=== PATIENT | male | born 1955 | race African-American/Black ===

== ENCOUNTER 2016-05-05 15:01 | Emergency (ER) | payer MEDICARE ==
[~2016-05-05] VITALS: Ht 177.8 cm; Wt 136.0 kg
[~2016-05-05 15:01] MED LIST: 1-ME1LIQ PO; ASPI325T24 PO; BUME1TAB PO; CARV25TA PO; CLON.2 PO; GABA600T PO; HUMALOG SQ; IBUP800T23 PO; LANTINJ SQ; LISI-587 PO; POTA20IN3 PO; SIMV20 PO; [UNRECOGNIZED DRUG - OTHER]; [UNRECOGNIZED DRUG - SUPPLY]; insulin needles
[2016-05-05 15:03] VITALS: BP 159/74; PULSE 73; RESP 14; TEMP 98.2; O2SAT 98
--- NOTE | 2016-05-05 15:15 | PD ---
HPI Chief Complaint: Chest Pain Time Seen by Provider: 15:15 Travel History International Travel<30 days: No Contact w/Intl Traveler<30days: No Traveled to known affect area: No History of Present Illness HPI 60-year-old male came to the emergency room with history of right sided chest pain and back of the neck pain. Patient says that this pain has been going on for past 2 days. He has history of disc problem in his neck. He points to the right parasternal area for his chest pain. Patient did not take any pain medication at home. He has history of aortic dissection that was repaired 2007. Patient says the pain is severe when he is unable to move his neck and actually has been walking like a "mummy". Vital signs were stable in the ER. [facility] Past Medical History Narrative Medical List of his past medical, social and family history was reviewed from the nursing note. Cardiovascular Problems: Yes Diabetes: Yes Respiratory: Yes Social History Tobacco Use: No Allergies-Medications (Allergen,Severity, Reaction): Coded Allergies: No Known Allergies (Unverified , 05/05/16) Comments No known drug allergies. Reported Meds & Prescriptions Reported Meds & Active Scripts Active Gabapentin 600 Mg Tab 600 Mg PO HS Humalog Inj (Insulin Human Lispro) 1,000 Unit/10 Ml Vial 20 Units SQ HS Give within 1 hour after dinner. Ibuprofen 800 Mg Tab 800 Mg PO Q8H PRN Carvedilol 25 mg (Carvedilol) 25 Mg Tab 1 Tab PO BID Bumetanide 1 Mg (Bumetanide) 1 Mg Tab 1 Mg PO DAILY Potassium Chloride inj (Potassium Chloride) 20 Meq Tab 1 Tab PO DAILY 1-Methyl 2-Pyrrolidinone (1-Methyl 2-Pyrrolidone (Bulk)) 10 Mg Tab 1 Tab PO DAILY Zestoretic 20/25 (Lisinopril/Hctz 20 mg/25 mg) 20 mg/25 mg Tab 1 Tab PO DAILY Catapres 0.2 mg (Clonidine HCl) 0.2 Mg Tab 1 Tab PO DAILY Simvastatin 20 mg (Simvastatin) 20 Mg Tab 1 Tab PO HS Ecotrin (Aspirin) 325 Mg Tabec 325 Mg PO DAILY Lantus Solostar Pen (Insulin Glargine) 100 Units/Ml Pen 30 Units SQ HS Narrative Medication List of his home medications reviewed from the nursing note. Review of Systems Except as stated in HPI: all other systems reviewed are Neg Physical Exam Narrative GENERAL: Awake, alert, morbidly obese, moderate distress SKIN: Warm and dry. HEAD: Atraumatic. Normocephalic. EYES: Pupils equal and round. No scleral icterus. No injection or drainage. ENT: No nasal bleeding or discharge. Mucous membranes pink and moist. NECK: Trachea midline. No JVD. CARDIOVASCULAR: Regular rate and rhythm. No murmur appreciated. RESPIRATORY: No accessory muscle use. Clear to auscultation. Breath sounds equal bilaterally. GASTROINTESTINAL: Abdomen soft, non-tender, nondistended. Hepatic and splenic margins not palpable. MUSCULOSKELETAL: No obvious deformities. No clubbing. No cyanosis. No edema. NEUROLOGICAL: Awake and alert. No obvious cranial nerve deficits. Motor grossly within normal limits. Normal speech. PSYCHIATRIC: Appropriate mood and affect; insight and judgment normal. Data Data Last Documented VS Vital Signs Date Time Temp Pulse Resp B/P Pulse Ox O2 Delivery O2 Flow Rate FiO2 05/05/16 19:23 18 142/72 95 Room Air 05/05/16 15:03 98.2 73 Orders Electrocardiogram (05/05/16 15:36) Basic Metabolic Panel (Bmp) (05/05/16 15:36) Ckmb (Isoenzyme) Profile (05/05/16 15:36) Complete Blood Count With Diff (05/05/16 15:36) Magnesium (Mg) (05/05/16 15:36) Prothrombin Time / Inr (Pt) (05/05/16 15:36) Act Partial Throm Time (Ptt) (05/05/16 15:36) Troponin I (05/05/16 15:36) Chest, Single Ap (05/05/16 15:36) Ecg Monitoring (05/05/16 15:36) Bilateral Bp Monitoring (05/05/16 15:36) Iv Access Insert/Monitor (05/05/16 15:36) Oximetry (05/05/16 15:36) Oxygen Administration (05/05/16 15:36) Sodium Chloride 0.9% Flush (Ns Flush) (05/05/16 15:45) Ketorolac Inj (Toradol Inj) (05/05/16 15:45) Morphine Inj (Morphine Inj) (05/05/16 15:45) Ondansetron Inj (Zofran Inj) (05/05/16 15:45) CKMB (05/05/16 16:10) CKMB% (05/05/16 16:10) Labs Laboratory Tests Test 05/05/16 16:10 White Blood Count 8.8 TH/MM3 Red Blood Count 4.58 MIL/MM3 Hemoglobin 13.8 GM/DL Hematocrit 39.7 % Mean Corpuscular Volume 86.7 FL Mean Corpuscular Hemoglobin 30.2 PG Mean Corpuscular Hemoglobin 34.8 % Concent Red Cell Distribution Width 12.7 % Platelet Count 224 TH/MM3 Mean Platelet Volume 9.2 FL Neutrophils (%) (Auto) 73.3 % Lymphocytes (%) (Auto) 16.4 % Monocytes (%) (Auto) 8.8 % Eosinophils (%) (Auto) 1.1 % Basophils (%) (Auto) 0.4 % Neutrophils # (Auto) 6.5 TH/MM3 Lymphocytes # (Auto) 1.4 TH/MM3 Monocytes # (Auto) 0.8 TH/MM3 Eosinophils # (Auto) 0.1 TH/MM3 Basophils # (Auto) 0.0 TH/MM3 CBC Comment DIFF FINAL Differential Comment Prothrombin Time 10.2 SEC Prothromb Time International 0.9 RATIO Ratio Activated Partial 25.7 SEC Thromboplast Time Sodium Level 138 MEQ/L Potassium Level 3.8 MEQ/L Chloride Level 100 MEQ/L Carbon Dioxide Level 31.0 MEQ/L Anion Gap 7 MEQ/L Blood Urea Nitrogen 23 MG/DL Creatinine 1.25 MG/DL Estimat Glomerular Filtration 72 ML/MIN Rate Random Glucose 345 MG/DL Calcium Level 8.4 MG/DL Magnesium Level 2.0 MG/DL Total Creatine Kinase 123 U/L Creatine Kinase MB 1.1 NG/ML Troponin I LESS THAN 0.02 NG/ML MDM Medical Decision Making Medical Screen Exam Complete: Yes Emergency Medical Condition: Yes Medical Record Reviewed: Yes Interpretation(s) Twelve-lead EKG was reviewed by me. Normal sinus rhythm, normal axis, lateral T wave inversion and ST depression. Heart rate of 69 bpm. Differential Diagnosis ACS, non-STEMI, aortic dissection Narrative Course 4:40 PM awaiting for the blood test results to come back. I've ordered something for pain for this patient. 7:20 PM patient's blood test results showed a significant hyperglycemia. Troponin was negative and he EKG had these changes which there were no old EKGs to compare with. Patient has significant risk factor for coronary artery disease namely uncontrolled diabetes, obesity, hypertension and age. Patient told me that he had a stress test done by [facility] last month and he was told was negative. I spoke with Dr. Amor who after listening to the history recommended that the patient should be admitted to the medical floor to be ruled out. 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 He did not want to stay. He understood the risk of leaving including a major heart attack and . He was in full capacity to make decisions for himself. He decided to sign AGAINST MEDICAL ADVICE. His female partner was in the room during this entire conversation. Procedures EKG Prior to Arrival: Yes Physician Communication Physician Communication Dr. Amor Diagnosis Primary Impression: Chest pain Qualified Code: R07.9 - Chest pain, unspecified type Additional Impressions: Poorly controlled diabetes mellitus Hyperglycemia ST segment changes on electrocardiogram Disposition: AGAINST MEDICAL ADVICE Condition: Serious Myla Chauhan MD May 05, 2016 15:15
[2016-05-05] MEDS ORDERED: KETOROLAC TROMETHAMINE 30 MG/ML (IVP) VIAL IV PUSH ONE (15:45)
[2016-05-05] MEDS ORDERED: ONDANSETRON HCL 4 MG/2 ML VIAL IV PUSH ONE (15:45)
[2016-05-05] MEDS ORDERED: MORPHINE SULFATE 4 MG/ML INJ IV PUSH ONE (15:45)
[2016-05-05] MEDS ORDERED: SODIUM CHLORIDE 0.9% FLUSH 5 ML FLUSH IVF PRN (15:45)
--- NOTE | 2016-05-05 16:24 | RADRPT ---
EXAM DATE/TIME: 05/05/2016 15:35 [facility] COMPARISON: No previous studies available for comparison. INDICATIONS : Chest Pain MEDICAL HISTORY : None. SURGICAL HISTORY : Type 2 Aortic Dissection ENCOUNTER: Initial ACUITY: 1 day PAIN SCORE: 8/10 LOCATION: Bilateral chest FINDINGS: No focal consolidation or effusion. Mild cardiomegaly. Postoperative median sternotomy. Tortuous aort a. No pneumothorax. CONCLUSION: 1. Minimal basilar atelectasis. Cardiomegaly with tortuous and ectatic aorta. Eriberto Dale MD on May 05, 2016 at 16:20 Board Certified Radiologist. This report was verified electronically.
[2016-05-05 17:05] LABS: AUTOMATED NEUTROPHIL # 6.5 TH/MM3 (1.8-7.7); BASOPHIL % 0.4 % (0.0-2.0); EOSINOPHIL # 0.1 TH/MM3 (0-0.4); EOSINOPHIL % 1.1 % (0.0-4.0); HEMATOCRIT 39.7 % (39.0-51.0); HEMO FLAGS DIFF FINAL; LYMPH % 16.4 % (9.0-44.0); LYMPHOCYTE # 1.4 TH/MM3 (1.0-4.8); MEAN CELL VOLUME 86.7 FL (80.0-100.0); MEAN CORPUSCULAR HEMOGLOBIN 30.2 PG (27.0-34.0); MEAN CORPUSCULAR HGB CONC 34.8 % (32.0-36.0); MONO % 8.8 % (0.0-8.0); NEUT % 73.3 % (16.0-70.0); PLATELET COUNT 224 TH/MM3 (150-450); RED BLOOD COUNT 4.58 MIL/MM3 (4.50-5.90); RED CELL DISTRIBUTION WIDTH 12.7 % (11.6-17.2); WHITE BLOOD COUNT 8.8 TH/MM3 (4.0-11.0)
[2016-05-05 17:18] LABS: APTT (PATIENT) 25.7 SEC (24.3-30.1); INTERNATIONAL NORMALIZED RATIO 0.9 RATIO; PROTHROMBIN TIME - PATIENT 10.2 SEC (9.8-11.6)
[2016-05-05 18:06] LABS: ANION GAP 7 MEQ/L (5-15); BLOOD UREA NITROGEN 23 MG/DL (7-18); CHLORIDE 100 MEQ/L (98-107); CREATINE KINASE 123 U/L (39-308); GLOMERULAR FILTRATION RATE 72 ML/MIN (>89); POTASSIUM 3.8 MEQ/L (3.5-5.1); SODIUM (NA) 138 MEQ/L (136-145)
[2016-05-05 18:21] LABS: CKMB 1.1 NG/ML (0.5-3.6)
[2016-05-05 19:23] VITALS: BP 142/72; RESP 18; O2SAT 95
--- NOTE | 2016-05-06 14:14 | EKG ---
Date Performed: 05/05/2016 Time Performed: 15:27:46 PTAGE: 60 years EKG: Sinus rhythm Diffuse nonspecific ST-T wave change Borderline changes for LVH Since previous tracing, the ST-T kaiser nges anterolaterally are new ABNORMAL ECG PREVIOUS TRACING : 06/16/1999 17.28 DOCTOR: Diaz Portillo Interpretating Date/Time 05/06/2016 15:34:25
[2016-07-06] MEDS ORDERED: METF500T PO (12:53)
[2016-07-12] MEDS ORDERED: BYET10IN2 SQ (08:48)
== END 2016-05-05 19:43 | disposition left against medical advice (07) ==
LOC: NEPE 15:01
DX: R07.9 Chest pain, unspecified (principal); E11.65 Type 2 diabetes mellitus with hyperglycemia; R94.31 Abnormal electrocardiogram [ECG] [EKG]; M54.2 Cervicalgia; I10 Essential (primary) hypertension; E66.9 Obesity, unspecified; Z53.29 Procedure and treatment not carried out because of patient's decision for other reasons; Z79.4 Long term (current) use of insulin; Z86.79 Personal history of other diseases of the circulatory system; Z87.09 Personal history of other diseases of the respiratory system
CPT/HCPCS: 71010; 80048; 82550; 82552; 83735; 84484; 85025; 85610; 85730; 93005; 96374; 96375; 99285; J1885; J2270; J2405

== ENCOUNTER 2016-10-19 17:22 | Inpatient (IN) | payer MEDICARE ==
[~2016-10-19] VITALS: Ht 177.8 cm; Wt 140.0 kg
[~2016-10-19 17:22] MED LIST changes: +BYET10IN2 SQ; +LACTATED RINGER'S 1000 ML INJ 1,000 ML IV ONE; +NEOSTIGMINE 3 MG/3 ML SYR IV ONE; +ONDANSETRON HCL 4 MG/2 ML VIAL IV PUSH ONE; +PROPOFOL 200 MG/20 ML AMP IV ONE; -[UNRECOGNIZED DRUG - OTHER]; -[UNRECOGNIZED DRUG - SUPPLY]; +ePHEDrine/NS 25 MG/5 ML SYR IV ONE; -insulin needles
[2016-10-19 17:24] VITALS: BP 162/79; PULSE 69; RESP 17; TEMP 99.3; O2SAT 98
[2016-10-19] MEDS ORDERED: SODIUM CHLOR 0.9% 1000 ML INJ 1,000 ML IV SCH (17:57)
[2016-10-19] MEDS ORDERED: MORPHINE SULFATE 4 MG/ML INJ IV PUSH ONE ×2 (18:00→20:30)
[2016-10-19] MEDS ORDERED: ONDANSETRON HCL 4 MG/2 ML VIAL IVP ONE (18:00)
[2016-10-19 18:05] VITALS: BP 158/83; PULSE 72; RESP 20; O2SAT 95
[2016-10-19 18:07] VITALS: O2SAT 96
--- NOTE | 2016-10-19 18:18 | PD ---
HPI Chief Complaint: Abdominal Pain Time Seen by Provider: 18:16 Travel History International Travel<30 days: Yes Contact w/Intl Traveler<30days: Yes Name of Country Traveled to: [place] Traveled to known affect area: No History of Present Illness HPI 60- year old male presents to the ED complaining of abdominal pain for the past 24 hours. He describes his pain as cramping and as a 9-10/10. The pain is worse with movement, especially with laying down and standing up. He reports he has tried Pepto Bismol and mustard for the pain, but had no relief. The patient called his primary care Dr. Brunner, who advised him to come to the ED to rule out appendicitis. He reports his last bowel movement was today, but does feel as if his abdomen is more distended than usual. He denies any nausea, vomiting, diarrhea, fevers, chills, or night sweats. He reports his medical conditions include Aortic Dissection, HTN, DM, and HLD. Patient does tell me he has a history of aortic dissection for which she follows with Dr. Doran and had surgery on it in 2006. PFSH Past Medical History Hx Anticoagulant Therapy: Yes (ASA 325MG) Cardiovascular Problems: Yes (HX AORTIC DISSECTION) Diabetes: Yes (TYPE 2) Respiratory: Yes Social History Tobacco Use: No Allergies-Medications (Allergen,Severity, Reaction): Coded Allergies: Hydrocodone (Verified Allergy, Severe, Confusion, 10/19/16) Oxycodone (Verified Allergy, Severe, Confusion, 10/19/16) Metformin (Verified Adverse Reaction, Severe, aortic dissection, 10/19/16) Reported Meds & Prescriptions Reported Meds & Active Scripts Active Humalog Inj (Insulin Human Lispro) 1,000 Unit/10 Ml Vial 20 Units SQ HS Give within 1 hour after dinner. Reported Potassium Chloride ER (Potassium Chloride) 20 Meq Tab 20 Meq PO DAILY Simvastatin 20 Mg Tab 20 Mg PO DAILY Zestoretic (Lisinopril-Hctz) 20-25 Mg Tab 1 Tab PO BID Lantus Solostar Pen Inj (Insulin Glargine) 300 Unit/3 Ml Pen 30 Units SQ HS Clonidine (Clonidine HCl) 0.2 Mg Tab 0.2 Mg PO HS Coreg (Carvedilol) 25 Mg Tab 25 Mg PO BID Bumetanide 1 Mg Tab 0.5 Mg PO DAILY Ecotrin Regular Strength (Aspirin) 325 Mg Tabdr 325 Mg PO DAILY Norvasc (Amlodipine Besylate) 10 Mg Tab 10 Mg PO DAILY Review of Systems General / Constitutional: No: Fever, Chills, Weight Gain, Weight Loss, Other Eyes: No: Diploplia, Blurred Vision, Photophobia, Drainage, Redness, Foreign Body Sensation, Pain, Tearing, Blind Spots, Visual changes, Blindness, Other HENT: No: Headaches, Vertigo, Lightheadedness, Sore Throat, Rhinitis, Rhinorrhea, Congestion, Nosebleed, Neck Stiffness, Neck Pain, Masses, Gingival Bleeding, Dental Difficulties, Ear Discharge, Earache, Other Cardiovascular: No: Chest Pain or Discomfort, Palpitations, Irregular Rhythm, Tachycardia, Diaphoresis, Syncope, Dyspnea on exertion, Varicosities, Edema, Cyanosis, Varicosities, Phlebitis, Claudication, Other Respiratory: No: Cough, Shortness of Breath, Wheezing, Sneezing, Orthopnea, Hemoptysis, Stridor, Night Sweats, Pleuritic Pain, Other Gastrointestinal: Positive: Abdominal Pain, No: Nausea, Vomiting, Diarrhea, Hematemesis, Hematochezia, Constipation, Changes in Bowel Habits, Indigestion, Dysphagia, Loss of Appetite, Other (Distention) Genitourinary: No: Urgency, Frequency, Dysuria, Nocturia, Hematuria, Decreased Urinary Output, Oliguria, Hesitancy, Dribbling, Incontinence, Pelvic Pain, Flank Pain, Dyspareunia, Discharge, Dysmenorrhea, Menorrhagia, Metorrhagia, Vaginal Bleeding, Other Musculoskeletal: No: Myalgias, Arthralgias, Limited ROM, Weakness, Cramping, Edema, Pain, Atrophy, Other Skin: No Rash, No Itching, No Dryness, No Lumps, No Hives, No Change in Pigmentation, No Change in nails, No Alopecia, No Lesions, No Breast Lumps, No Breast Tenderness, No Breast Swelling, No Other Neurologic: No: Weakness, Dizziness, Syncope, Focal Abnormalities, Coordination Problem, Tremor, Ataxia, Headache, Change in Mentation, Slurred Speech, Paresthesia, Incontinence, Seizures, Sensory Disturbance, Other Psychiatric: No: Anxiety, Depression, Suicidal Ideations, Disorder of Thought, Mood Disorder, Substance Abuse, Homicidal Ideation, Other Endocrine: No: Heat Intolerance, Cold Intolerance, Polyuria, Polydipsia, Other Hematologic/Lymphatic: No: Easy Bruising, Lymph Node Enlargement, Other Physical Exam Narrative GENERAL: SKIN: Warm and dry. HEAD: Atraumatic. Normocephalic. EYES: Pupils equal and round. No scleral icterus. No injection or drainage. ENT: No nasal bleeding or discharge. Mucous membranes pink and moist. NECK: Trachea midline. No JVD. CARDIOVASCULAR: Regular rate and rhythm. RESPIRATORY: No accessory muscle use. Clear to auscultation. Breath sounds equal bilaterally. GASTROINTESTINAL: Abdomen hard, distended. Tender to palpation in RLQ and LLQ, but worse in RLQ.Hepatic and splenic margins not palpable. MUSCULOSKELETAL: Extremities without clubbing, cyanosis, or edema. No obvious deformities. NEUROLOGICAL: Awake and alert. No obvious cranial nerve deficits. Motor grossly within normal limits. Five out of 5 muscle strength in the arms and legs. Normal speech. PSYCHIATRIC: Appropriate mood and affect; insight and judgment normal. Data Data Last Documented VS Vital Signs Date Time Temp Pulse Resp B/P Pulse Ox O2 Delivery O2 Flow Rate FiO2 10/19/16 18:37 24 10/19/16 18:07 96 Room Air 10/19/16 18:05 72 158/83 10/19/16 17:24 99.3 Orders Complete Blood Count With Diff (10/19/16 17:57) Comprehensive Metabolic Panel (10/19/16 17:57) Lipase (10/19/16 17:57) Lactic Acid (10/19/16 17:57) Prothrombin Time / Inr (Pt) (10/19/16 17:57) Act Partial Throm Time (Ptt) (10/19/16 17:57) Urinalysis - C+S If Indicated (10/19/16 17:57) Ct Abd/Pel W Iv Contrast(Rout) (10/19/16 17:57) Iv Access Insert/Monitor (10/19/16 17:57) Ecg Monitoring (10/19/16 17:57) Oximetry (10/19/16 17:57) Morphine Inj (Morphine Inj) (10/19/16 18:00) Ondansetron Inj (Zofran Inj) (10/19/16 18:00) Sodium Chlor 0.9% 1000 Ml Inj (Ns 1000 M (10/19/16 17:57) Iohexol 350 Inj (Omnipaque 350 Inj) (10/19/16 19:32) Piperacil-Tazo 3.375 Gm Premix (Zosyn 3. (10/19/16 20:15) Morphine Inj (Morphine Inj) (10/19/16 20:30) Consult Fantasma Nfs (10/19/16 ) Consent (10/19/16 20:32) Admit Order (Ed Use Only) (10/19/16 20:50) Consult General Surgery (10/19/16 ) (Hub Use Only)Inp Phy Cons/Ref (10/19/16 ) Labs Laboratory Tests Test 10/19/16 10/19/16 10/19/16 18:08 18:15 19:57 White Blood Count 14.9 TH/MM3 Red Blood Count 4.89 MIL/MM3 Hemoglobin 14.8 GM/DL Hematocrit 42.9 % Mean Corpuscular Volume 87.8 FL Mean Corpuscular Hemoglobin 30.2 PG Mean Corpuscular Hemoglobin 34.4 % Concent Red Cell Distribution Width 13.0 % Platelet Count 227 TH/MM3 Mean Platelet Volume 9.0 FL Neutrophils (%) (Auto) 81.9 % Lymphocytes (%) (Auto) 9.1 % Monocytes (%) (Auto) 7.9 % Eosinophils (%) (Auto) 0.5 % Basophils (%) (Auto) 0.6 % Neutrophils # (Auto) 12.2 TH/MM3 Lymphocytes # (Auto) 1.4 TH/MM3 Monocytes # (Auto) 1.2 TH/MM3 Eosinophils # (Auto) 0.1 TH/MM3 Basophils # (Auto) 0.1 TH/MM3 CBC Comment DIFF FINAL Differential Comment Prothrombin Time 10.7 SEC Prothromb Time International 1.0 RATIO Ratio Activated Partial 24.9 SEC Thromboplast Time Sodium Level 135 MEQ/L Potassium Level 5.2 MEQ/L Chloride Level 100 MEQ/L Carbon Dioxide Level 30.4 MEQ/L Anion Gap 5 MEQ/L Blood Urea Nitrogen 15 MG/DL Creatinine 1.03 MG/DL Estimat Glomerular Filtration 90 ML/MIN Rate Random Glucose 158 MG/DL Calcium Level 9.0 MG/DL Total Bilirubin 0.7 MG/DL Aspartate Amino Transf 52 U/L (AST/SGOT) Alanine Aminotransferase 21 U/L (ALT/SGPT) Alkaline Phosphatase 94 U/L Total Protein 7.7 GM/DL Albumin 3.7 GM/DL Lipase 87 U/L Lactic Acid Level 0.9 mmol/L Urine Color LIGHT-YELLOW Urine Turbidity CLEAR Urine pH 6.0 Urine Specific [place] 1.019 Urine Protein NEG mg/dL Urine Glucose (UA) NEG mg/dL Urine Ketones NEG mg/dL Urine Occult Blood NEG Urine Nitrite NEG Urine Bilirubin NEG Urine Urobilinogen LESS THAN 2.0 MG/DL Urine Leukocyte Esterase NEG Urine WBC LESS THAN 1 /hpf Microscopic Urinalysis Comment CULT NOT INDICATED MDM Medical Decision Making Medical Screen Exam Complete: Yes Emergency Medical Condition: Yes Medical Record Reviewed: Yes Interpretation(s) CBC & BMP Diagram 10/19/16 18:08 LFTS and lipase WNL UA negative lactic acid WNL Last Impressions Abdomen/Pelvis CT 10/19/16 9524 Signed Impressions: Service Date/Time: Saturday, October 19, 2016 19:26 - CONCLUSION: 1. Abnormal appearance of the cecum and appendix with diffuse wall thickening and some fluid tracking posterior to the appendix. Findings are suspicious for appendicitis with associated inflammatory changes in the cecum. 2. Dissection of the aorta extending into the iliac artery with contrast present in both the true and false lumens. There is contrast seen in both renal arteries with each renal artery arising from a different compartment. Bertrand Clarke MD Differential Diagnosis Appendicitis Diverticulitis Obstruction Narrative Course 60-year-old male that presents to the ED for evaluation of possible appendicitis. Patient was properly examined and was found to have signs and symptoms consistent appears to be appendicitis. Labs and imaging were ordered. Labs and imaging were consistent with appendicitis. Patient did have findings of what appears to be chronic dissection. Case was discussed in my attending who was made aware of findings and spoke with cardiology who agrees to this is likely chronic. I spoke on the phone with Dr. Doran who is aware of the patient and states that this is chronic and patient can undergo surgery only needs blood pressure control. Case was discussed with Dr. Linton who was made aware of all findings and recommends admission to medicine secondary to patient's comorbidities including diabetes, artery dissection, high blood pressure as he might require more than just surgery. Patient was started on Zosyn and became nothing by mouth. Residents were paged and agreed to admission. Diagnosis Primary Impression: Appendicitis Qualified Code: K35.80 - Acute appendicitis, unspecified acute appendicitis type Additional Impression: Aortic dissection Qualified Code: I71.00 - Dissection of aorta, unspecified portion of aorta Admitting Information Admitting Physician Requests: Observation Fawad Hamilton Oct 19, 2016 18:18
[2016-10-19 18:29] LABS: AUTOMATED NEUTROPHIL # 12.2 TH/MM3 (1.8-7.7); BASOPHIL # 0.1 TH/MM3 (0-0.2); BASOPHIL % 0.6 % (0.0-2.0); EOSINOPHIL # 0.1 TH/MM3 (0-0.4); EOSINOPHIL % 0.5 % (0.0-4.0); HEMATOCRIT 42.9 % (39.0-51.0); HEMO FLAGS DIFF FINAL; LYMPH % 9.1 % (9.0-44.0); LYMPHOCYTE # 1.4 TH/MM3 (1.0-4.8); MEAN CELL VOLUME 87.8 FL (80.0-100.0); MEAN CORPUSCULAR HEMOGLOBIN 30.2 PG (27.0-34.0); MEAN CORPUSCULAR HGB CONC 34.4 % (32.0-36.0); MONO % 7.9 % (0.0-8.0); NEUT % 81.9 % (16.0-70.0); PLATELET COUNT 227 TH/MM3 (150-450); RED BLOOD COUNT 4.89 MIL/MM3 (4.50-5.90); WHITE BLOOD COUNT 14.9 TH/MM3 (4.0-11.0)
[2016-10-19 18:35] LABS: APTT (PATIENT) 24.9 SEC (24.3-30.1); PROTHROMBIN TIME - PATIENT 10.7 SEC (9.8-11.6)
[2016-10-19 18:53] LABS: ALKALINE PHOSPHATASE 94 U/L (45-117); ALT (GPT) 21 U/L (12-78); TOTAL BILIRUBIN ADULT 0.7 MG/DL (0.2-1.0)
[2016-10-19 19:00] LABS: ANION GAP 5 MEQ/L (5-15); BICARBONATE 30.4 MEQ/L (21.0-32.0); BLOOD UREA NITROGEN 15 MG/DL (7-18); CHLORIDE 100 MEQ/L (98-107); GLOMERULAR FILTRATION RATE 90 ML/MIN (>89); SODIUM (NA) 135 MEQ/L (136-145)
[2016-10-19 19:01] LABS: AST (GOT) 52 U/L (15-37); POTASSIUM 5.2 MEQ/L (3.5-5.1)
[2016-10-19] MEDS ORDERED: CLON0.2T PO (19:02)
[2016-10-19] MEDS ORDERED: POTA-163 PO (19:02)
[2016-10-19] MEDS ORDERED: LISI-587 PO (19:02)
[2016-10-19] MEDS ORDERED: SIMV20TA PO (19:02)
[2016-10-19] MEDS ORDERED: CORE25TA PO (19:02)
[2016-10-19] MEDS ORDERED: LANTINJ SQ (19:02)
[2016-10-19] MEDS ORDERED: ASPI-146 PO (19:02)
[2016-10-19] MEDS ORDERED: AMLO10 PO (19:02)
[2016-10-19] MEDS ORDERED: BUME1TAB PO (19:02)
[2016-10-19] MEDS ORDERED: IOHEXOL 350 MG/ML 10 ML VIAL (for RAD DIAG) IV ONE (19:32)
--- NOTE | 2016-10-19 19:56 | RADRPT ---
EXAM DATE/TIME: 10/19/2016 19:26 [facility] COMPARISON: No previous studies available for comparison. INDICATIONS : Patient has lower right abdomen pain. IV CONTRAST: 96 cc Omnipaque 350 (iohexol) IV ORAL CONTRAST: No oral contrast ingested. RADIATION DOSE: 16.97 CTDIvol (mGy) MEDICAL HISTORY : Diabetes mellitus type 2. aortic dissection SURGICAL HISTORY : None. ENCOUNTER: Initial ACUITY: 1 day PAIN SCALE: 8/10 LOCATION: Right lower quadrant TECHNIQUE: Volumetric scanning of the abdomen and pelvis was performed. Using automated exposure control and ad justment of the mA and/or kV according to patient size, radiation dose was kept as low as reasonably achievable to obtain optimal diagnostic quality images. DICOM format image data is available electro nically for review and comparison. FINDINGS: LOWER LUNGS: The visualized lower lungs are clear. LIVER: Homogeneous density without lesion. There is no dilation of the biliary tree. No calcified gallston es. SPLEEN: Normal size without lesion. PANCREAS: Within normal limits. KIDNEYS: Normal in size and shape. There is no mass, stone or hydronephrosis. ADRENAL GLANDS: Within normal limits. VASCULAR: There is dissection of the aorta extending into the left iliac artery with a thin membrane the 2 channels and equal intensity of contrast in both lumens. The proximal extent of the dissectio n is not included in the [id number] of the exam, extending into the thoracic aorta. BOWEL/MESENTERY: Abnormal appearance to the cecum with concentric wall thickening measuring up to 1.7 cm. The appendi x is also thickened, measuring up to 1.7 cm in thickness. There is fluid tracking posterior to the a ppendix, but no fluid tracks into the pelvis. Small bowel loops are normal in dimension. ABDOMINAL WALL: Within normal limits. RETROPERITONEUM: There is no lymphadenopathy. BLADDER: No wall thickening or mass. REPRODUCTIVE: Within normal limits. INGUINAL: There is no lymphadenopathy or hernia. MUSCULOSKELETAL: Within normal limits for patient age. CONCLUSION: 1. Abnormal appearance of the cecum and appendix with diffuse wall thickening and some fluid tracki ng posterior to the appendix. Findings are suspicious for appendicitis with associated inflammatory changes in the cecum. 2. Dissection of the aorta extending into the iliac artery with contrast present in both the true an d false lumens. There is contrast seen in both renal arteries with each renal artery arising from a different compartment. Bertrand Clarke MD on October 19, 2016 at 19:40 Board Certified Radiologist. This report was verified electronically.
[2016-10-19] MEDS ORDERED: PIPERACIL-TAZO 3.375 GM PREMIX 50 ML IV ONE (20:15)
[2016-10-19 20:19] LABS: BLOOD, URINE NEG (NEG); COMMENT (UR) CULT NOT INDICATED; CULTURE IF INDICATED CULT NOT INDICATED; GLUCOSE,URINE NEG (NEG); KETONE, URINE NEG (NEG); NITRITE,URINE NEG (NEG); URINE COLOR LIGHT-YELLOW (YELLW/STRAW)
--- NOTE | 2016-10-19 20:38 | PD ---
Physical Exam Narrative GENERAL: Well-nourished, well-developed patient. SKIN: Warm and dry. HEAD: Normocephalic and atraumatic. EYES: No injection or drainage. ENT: No nasal drainage noted. NECK: Supple, trachea midline. CARDIOVASCULAR: Regular rate and rhythm RESPIRATORY: No increased effort. No accessory muscle use. NEUROLOGICAL: Awake and alert. Moves all extremities. Normal speech. Data Data Last Documented VS Vital Signs Date Time Temp Pulse Resp B/P Pulse Ox O2 Delivery O2 Flow Rate FiO2 10/19/16 18:37 24 10/19/16 18:07 96 Room Air 10/19/16 18:05 72 158/83 10/19/16 17:24 99.3 Orders Complete Blood Count With Diff (10/19/16 17:57) Comprehensive Metabolic Panel (10/19/16 17:57) Lipase (10/19/16 17:57) Lactic Acid (10/19/16 17:57) Prothrombin Time / Inr (Pt) (10/19/16 17:57) Act Partial Throm Time (Ptt) (10/19/16 17:57) Urinalysis - C+S If Indicated (10/19/16 17:57) Ct Abd/Pel W Iv Contrast(Rout) (10/19/16 17:57) Iv Access Insert/Monitor (10/19/16 17:57) Ecg Monitoring (10/19/16 17:57) Oximetry (10/19/16 17:57) Morphine Inj (Morphine Inj) (10/19/16 18:00) Ondansetron Inj (Zofran Inj) (10/19/16 18:00) Sodium Chlor 0.9% 1000 Ml Inj (Ns 1000 M (10/19/16 17:57) Iohexol 350 Inj (Omnipaque 350 Inj) (10/19/16 19:32) Piperacil-Tazo 3.375 Gm Premix (Zosyn 3. (10/19/16 20:15) Morphine Inj (Morphine Inj) (10/19/16 20:30) Consult Fantasma Nfs (10/19/16 ) Consent (10/19/16 20:32) Labs Laboratory Tests Test 10/19/16 10/19/16 10/19/16 18:08 18:15 19:57 White Blood Count 14.9 TH/MM3 Red Blood Count 4.89 MIL/MM3 Hemoglobin 14.8 GM/DL Hematocrit 42.9 % Mean Corpuscular Volume 87.8 FL Mean Corpuscular Hemoglobin 30.2 PG Mean Corpuscular Hemoglobin 34.4 % Concent Red Cell Distribution Width 13.0 % Platelet Count 227 TH/MM3 Mean Platelet Volume 9.0 FL Neutrophils (%) (Auto) 81.9 % Lymphocytes (%) (Auto) 9.1 % Monocytes (%) (Auto) 7.9 % Eosinophils (%) (Auto) 0.5 % Basophils (%) (Auto) 0.6 % Neutrophils # (Auto) 12.2 TH/MM3 Lymphocytes # (Auto) 1.4 TH/MM3 Monocytes # (Auto) 1.2 TH/MM3 Eosinophils # (Auto) 0.1 TH/MM3 Basophils # (Auto) 0.1 TH/MM3 CBC Comment DIFF FINAL Differential Comment Prothrombin Time 10.7 SEC Prothromb Time International 1.0 RATIO Ratio Activated Partial 24.9 SEC Thromboplast Time Sodium Level 135 MEQ/L Potassium Level 5.2 MEQ/L Chloride Level 100 MEQ/L Carbon Dioxide Level 30.4 MEQ/L Anion Gap 5 MEQ/L Blood Urea Nitrogen 15 MG/DL Creatinine 1.03 MG/DL Estimat Glomerular Filtration 90 ML/MIN Rate Random Glucose 158 MG/DL Calcium Level 9.0 MG/DL Total Bilirubin 0.7 MG/DL Aspartate Amino Transf 52 U/L (AST/SGOT) Alanine Aminotransferase 21 U/L (ALT/SGPT) Alkaline Phosphatase 94 U/L Total Protein 7.7 GM/DL Albumin 3.7 GM/DL Lipase 87 U/L Lactic Acid Level 0.9 mmol/L Urine Color LIGHT-YELLOW Urine Turbidity CLEAR Urine pH 6.0 Urine Specific [place] 1.019 Urine Protein NEG mg/dL Urine Glucose (UA) NEG mg/dL Urine Ketones NEG mg/dL Urine Occult Blood NEG Urine Nitrite NEG Urine Bilirubin NEG Urine Urobilinogen LESS THAN 2.0 MG/DL Urine Leukocyte Esterase NEG Urine WBC LESS THAN 1 /hpf Microscopic Urinalysis Comment CULT NOT INDICATED [facility] Supervised Visit with BRANDEE: Yes Interpretation(s) Last 24 hours Impressions Abdomen/Pelvis CT 10/19/16 1027 Signed Impressions: Service Date/Time: Wednesday, October 19, 2016 19:26 - CONCLUSION: 1. Abnormal appearance of the cecum and appendix with diffuse wall thickening and some fluid tracking posterior to the appendix. Findings are suspicious for appendicitis with associated inflammatory changes in the cecum. 2. Dissection of the aorta extending into the iliac artery with contrast present in both the true and false lumens. There is contrast seen in both renal arteries with each renal artery arising from a different compartment. Bertrand Clarke MD CBC & BMP Diagram 10/19/16 18:08 Narrative Course I, Dr. sullivan, have reviewed the advance practice practitioner's documentation and am in agreement, met with the patient face to face, made the diagnosis, and the medical decision making was done by me. *My assessment and Findings: 60-year-old male presents with abdominal pain. CT shows chronic dissection and acute appendicitis. This was confirmed with radiologist and discussed prior imaging with him. Vascular surgery agrees chronic dissection. We'll admit for further care and dose with Zosyn Diagnosis Primary Impression: Appendicitis Qualified Code: K35.80 - Acute appendicitis, unspecified acute appendicitis type Additional Impression: Aortic dissection Qualified Code: I71.00 - Dissection of aorta, unspecified portion of aorta Admitting Information Admitting Physician Requests: Admit Trinity Sullivan MD Oct 19, 2016 20:38
--- NOTE | 2016-10-19 21:05 | HHI.HP ---
[facility] Service Family Medicine Primary Care Physician Jomar Brunner MD Admission Diagnosis acute appendicitis, HTN, DM Diagnoses: International Travel<30 Days: Yes Contact w/Intl Traveler<30days: Yes Name of Country Traveled to: [place] Known Affected Area: No History of Present Illness 60- year old male presents with 9/10, cramping abdominal pain in the RLQ. The pain is worse with standing up. He reports he has tried Pepto Bismol and mustard for the pain, but had no relief. States drinking water was difficult. The patient saw Dr. Brunner, who advised him to come to the ED to rule out appendicitis. He reports his last bowel movement was today. Had BM twice today. No melena, hematochezia, or changes in stool appearance. He denies any nausea, vomiting, diarrhea, fevers, or chills. Follows with benzol still operator Dr. Doran for HTN and aortic dissection history. Review of Systems Constitutional: DENIES: Fever, Weight gain, Weight loss Endocrine: DENIES: Polydipsia, Polyuria Eyes: DENIES: Blurred vision, Eye inflammation Ears, nose, mouth, throat: DENIES: Hearing loss, Throat pain, Hoarseness, Running Nose Respiratory: DENIES: Cough, Shortness of breath Cardiovascular: DENIES: Chest pain, Palpitations, Lower Extremity Edema Gastrointestinal: DENIES: Abdominal pain, Black stools, Bloody stools, Constipation, Diarrhea Genitourinary: DENIES: Urinary frequency, Urinary incontinence, Dysuria Musculoskeletal: DENIES: Joint pain, Joint Swelling Integumentary: DENIES: Abnormal pigmentation Hematologic/lymphatic: DENIES: Bruising Neurologic: DENIES: Headache, Localized weakness, Paresthesias, Poor Balance Psychiatric: DENIES: Anxiety, Confusion, Mood changes Past Family Social History Past Medical History DM2 - dx in , takes humolog 20, lantus 30. Normal sugars are 152 (range 90- 361). Last A1c 10.7 HLD - simvastatin 20mg, ASA 325 mg HTN- carvedilol 25 mg PO BID, clonidine 0.2 mg daily, bumetanide 1 mg daily Past Surgical History aortic dissection repair - 2006 Shoulder repair rotator cuff - 2011 Knee meniscectomy (L)- 2001 Allergies: Coded Allergies: Hydrocodone (Verified Allergy, Severe, Confusion, 10/19/16) Oxycodone (Verified Allergy, Severe, Confusion, 10/19/16) Metformin (Verified Adverse Reaction, Severe, aortic dissection, 10/19/16) Family History Mother: passed at age 52 from stroke Father: murdered at age 42 Siblings: brother with hx of stem cell cancer Social History no ETOH , drugs, or smoking hx Physical Exam Vital Signs Vital Signs Date Time Temp Pulse Resp B/P Pulse Ox O2 Delivery O2 Flow Rate FiO2 10/19/16 18:37 24 10/19/16 18:07 96 Room Air 10/19/16 18:05 72 20 158/83 95 Room Air 10/19/16 17:24 99.3 69 17 162/79 98 Physical Exam GENERAL: Patient appears comfortable, sitting up in bed joking and talking. at bedside. HEAD: Atraumatic. Normocephalic. EYES: Extraocular motions intact. No scleral icterus. No injection or drainage. NECK: Trachea midline. No JVD or lymphadenopathy. Supple, nontender, no meningeal signs. CARDIOVASCULAR: Regular rate and rhythm. 4/6 systolic murmur loudest in the right upper sterna border with palpable thrill. No bruits. RESPIRATORY: Clear to auscultation. Breath sounds equal bilaterally. No wheezes , rales, or rhonchi. GASTROINTESTINAL: Abdomen moderately distended. Diminished bowel sounds.Tenderness to palpation in the right side, most prominent in the RLQ. No hepato-splenomegaly, or palpable masses. No guarding. MUSCULOSKELETAL: Extremities without clubbing, cyanosis, or edema. No calf tenderness. NEUROLOGICAL: Awake and alert. No focal deficits observed. Motor and sensory grossly within normal limits. Normal speech. Laboratory Laboratory Tests Test 10/19/16 10/19/16 10/19/16 18:08 18:15 19:57 White Blood Count 14.9 Red Blood Count 4.89 Hemoglobin 14.8 Hematocrit 42.9 Mean Corpuscular Volume 87.8 Mean Corpuscular Hemoglobin 30.2 Mean Corpuscular Hemoglobin 34.4 Concent Red Cell Distribution Width 13.0 Platelet Count 227 Mean Platelet Volume 9.0 Neutrophils (%) (Auto) 81.9 Lymphocytes (%) (Auto) 9.1 Monocytes (%) (Auto) 7.9 Eosinophils (%) (Auto) 0.5 Basophils (%) (Auto) 0.6 Neutrophils # (Auto) 12.2 Lymphocytes # (Auto) 1.4 Monocytes # (Auto) 1.2 Eosinophils # (Auto) 0.1 Basophils # (Auto) 0.1 CBC Comment DIFF FINAL Differential Comment Prothrombin Time 10.7 Prothromb Time International 1.0 Ratio Activated Partial 24.9 Thromboplast Time Sodium Level 135 Potassium Level 5.2 Chloride Level 100 Carbon Dioxide Level 30.4 Anion Gap 5 Blood Urea Nitrogen 15 Creatinine 1.03 Estimat Glomerular Filtration 90 Rate Random Glucose 158 Calcium Level 9.0 Total Bilirubin 0.7 Aspartate Amino Transf 52 (AST/SGOT) Alanine Aminotransferase 21 (ALT/SGPT) Alkaline Phosphatase 94 Total Protein 7.7 Albumin 3.7 Lipase 87 Lactic Acid Level 0.9 Urine Color LIGHT-YELLOW Urine Turbidity CLEAR Urine pH 6.0 Urine Specific [place] 1.019 Urine Protein NEG Urine Glucose (UA) NEG Urine Ketones NEG Urine Occult Blood NEG Urine Nitrite NEG Urine Bilirubin NEG Urine Urobilinogen LESS THAN 2.0 Urine Leukocyte Esterase NEG Urine WBC LESS THAN 1 Microscopic Urinalysis Comment CULT NOT INDICATED Result Diagram: 10/19/16 18010/19/161807 Imaging Last 48 hours Impressions Abdomen/Pelvis CT 10/19/16 175 Signed Impressions: Service Date/Time: Wednesday, October 19, 2016 19:26 - CONCLUSION: 1. Abnormal appearance of the cecum and appendix with diffuse wall thickening and some fluid tracking posterior to the appendix. Findings are suspicious for appendicitis with associated inflammatory changes in the cecum. 2. Dissection of the aorta extending into the iliac artery with contrast present in both the true and false lumens. There is contrast seen in both renal arteries with each renal artery arising from a different compartment. Bertrand Clarke MD Course Labs and imaging were consistent with appendicitis. Dr. Doran was contacted and is aware of the patient and states aortic dissection is chronic and patient can undergo surgery only needs blood pressure control. Patient was started on Zosyn and placed on NPO. Assessment and Plan Assessment and Plan 60 y/o male w/hx of DM2 and HTN admitted for appendicitis per CT scan. General surgery consulted, patient to go to OR tonight for appendectomy. We will manage his other medical conditions while patient recovers and d/c w/Gen Surg recommendations. Code Status FULL Discussed Condition With Dr. Mary Weber Problem List: (1) Appendicitis Status: Acute Plan: CT findings are suspicious for appendicitis with associated inflammatory changes in the cecum WBC count elevated (14.9) Received Zosyn 1 in the ED Consulted Gen. surgery, NPO OR tonight for appendectomy (2) HTN (hypertension) Status: Acute Plan: Last BP 158/83 carvedilol 25 mg PO BID - clonidine 0.2 mg daily - bumetanide 1 mg daily (did not take today) (3) Aortic dissection Status: Chronic Plan: CT scan shows Dissection of the aorta extending into the iliac artery with contrast present in both the true and false lumens Chronic, following with cardiology (4) HLD (hyperlipidemia) Status: Acute Plan: Con't simvastatin 20mg, ASA 325 mg (5) DM2 (diabetes mellitus, type 2) Status: Acute Plan: Patient is currently nothing by mouth for procedure today Glucose 158 on admission Order A1c Insulin sliding scale Monitor glucose with Accu-Cheks. If random glucose above 180 or fasting glucose greater than 140, we'll consider adding an oral agent (glyburide) (6) FEN Plan: FEN: Electrolytes as needed Diet: NPO DVT prophy: SCDs only for procedure GI prophy: Not indicated Code: Full Physician Certification 2 Midnight Certification Type: Admission for Inpatient Services Order for Inpatient Services The services are ordered in accordance with Medicare regulations or non- Medicare payer requirements, as applicable. In the case of services not specified as inpatient-only, they are appropriately provided as inpatient services in accordance with the 2-midnight benchmark. Estimated LOS (days): 2 2 days is the estimated time the patient will need to remain in the hospital, assuming treatment plan goals are met and no additional complications. Post-Hospital Plan: Home Problem Qualifiers (1) Appendicitis: Qualified Code: K35.80 - Acute appendicitis, unspecified acute appendicitis type (2) HTN (hypertension): Qualified Code: I10 - Hypertension, unspecified type (3) Aortic dissection: Qualified Code: I71.00 - Dissection of aorta, unspecified portion of aorta (4) HLD (hyperlipidemia): Qualified Code: E78.5 - Hyperlipidemia, unspecified hyperlipidemia type (5) DM2 (diabetes mellitus, type 2): Qualified Code: E11.8 - Type 2 diabetes mellitus with complication, unspecified detention insulin use status Debora Vitale MD R1 Oct 19, 2016 21:05
[2016-10-19] MEDS: SODIUM CHLOR 0.9% 1000 ML INJ 1,000 ML IV SCH (21:13)
[2016-10-19] MEDS ORDERED: NALOXONE HCL 0.4 MG/ML AMP IV PRN (21:15)
[2016-10-19] MEDS ORDERED: LACTULOSE SYRUP 20 GM/30 ML CUP PO PRN (21:15)
[2016-10-19] MEDS ORDERED: MAGNESIUM HYDROXIDE SUSP 30 ML CUP PO PRN (21:15)
[2016-10-19] MEDS ORDERED: ONDANSETRON HCL 4 MG/2 ML VIAL IVP PRN (21:15)
[2016-10-19] MEDS ORDERED: SODIUM CHLORIDE 0.9% FLUSH 10 ML FLUSH IV FLUSH PRN (21:15)
[2016-10-19] MEDS ORDERED: DEXTROSE 50% IN WATER 50 ML VIAL(D50) IV PRN (21:30)
[2016-10-19] MEDS ORDERED: GLUCAGON 1 MG/ML VIAL OTHER PRN (21:30)
[2016-10-19] MEDS ORDERED: PILL SPLITTER OTHER PRN (21:45)
[2016-10-19] MEDS ORDERED: SUGAMMADEX SODIUM 200 MG/2 ML VIAL IV PUSH ONE ×2 (22:05)
[2016-10-19] MEDS ORDERED: ACETAMINOPHEN 1000 MG/100 ML VIAL IV ONE (22:06)
--- NOTE | 2016-10-19 22:20 | HHI.PR ---
Immediate Post Op Note Procedure Date: Oct 19, 2016 Pre Op Diagnosis: acute appendicitis Post Op Diagnosis: same Surgeon: Angel Linton MD Phlebotomy Tech(s): see or sheet Procedure: lap appy Findings: distended appendix, Complications: none Specimen(s) removed: appendix Estimated blood loss: 5cc Anesthesia: General Drains: None IVF Patient to: PACU Patient Condition: Good Angel Linton MD Oct 19, 2016 22:20
[2016-10-19] MEDS ORDERED: BUPIVACAINE HCL PF 0.5% 30 ML VIAL INFIL ONE (22:39)
[2016-10-19] MEDS ORDERED: MORPHINE SULFATE 4 MG/ML INJ IV PUSH PRN (23:45)
[2016-10-19] MEDS ORDERED: traMADol HCL 50 MG TAB PO PRN (23:45)
[2016-10-20] VITALS: BP 144/81; PULSE 71; RESP 17; TEMP 98.3; O2SAT 93
[2016-10-20] MEDS ORDERED: DO NOT ADM ANY ANTICOAGULANT DRUGS PRN
[2016-10-20] MEDS ORDERED: MIDAZOLAM HCL 2 MG/2 ML VIAL ONE (00:09)
[2016-10-20] MEDS ORDERED: fentaNYL CITRATE 250 MCG/5 ML AMP ONE (00:09)
[2016-10-20] MEDS ORDERED: MORPHINE SULFATE 8 MG/ML INJ ONE (00:38)
[2016-10-20 01:15] VITALS: BP 117/67; PULSE 66; RESP 17; TEMP 96.3; O2SAT 96
[2016-10-20] MEDS: SODIUM CHLOR 0.9% 1000 ML INJ 1,000 ML IV SCH (02:47)
[2016-10-20 04:00] VITALS: BP 117/67; PULSE 66; RESP 17; TEMP 96.3; O2SAT 96
[2016-10-20] MEDS: PIPERACIL-TAZO 3.375 GM PREMIX 50 ML IV SCH ×2 (06:58→12:51)
[2016-10-20] MEDS: INSULIN ASPART SUPPLEMENTAL SCALE SQ SCH ×2 (07:00→12:52)
[2016-10-20 08:00] VITALS: BP 148/72; PULSE 67; RESP 18; TEMP 98.7; O2SAT 94
[2016-10-20 08:27] LABS: AUTOMATED NEUTROPHIL # 10.8 TH/MM3 (1.8-7.7); BASOPHIL # 0.1 TH/MM3 (0-0.2); BASOPHIL % 0.4 % (0.0-2.0); HEMATOCRIT 40.7 % (39.0-51.0); HEMO FLAGS DIFF FINAL; LYMPH % 8.1 % (9.0-44.0); MEAN CELL VOLUME 88.9 FL (80.0-100.0); MEAN CORPUSCULAR HEMOGLOBIN 29.8 PG (27.0-34.0); MEAN CORPUSCULAR HGB CONC 33.5 % (32.0-36.0); MONO % 7.9 % (0.0-8.0); NEUT % 83.6 % (16.0-70.0); PLATELET COUNT 219 TH/MM3 (150-450); RED BLOOD COUNT 4.58 MIL/MM3 (4.50-5.90); RED CELL DISTRIBUTION WIDTH 13.3 % (11.6-17.2); WHITE BLOOD COUNT 12.9 TH/MM3 (4.0-11.0)
--- NOTE | 2016-10-20 08:29 | MP ---
cc: MARLEN LINTON MD DATE OF SURGERY: 10/19/2016 PREOPERATIVE DIAGNOSIS: Acute appendicitis. POSTOPERATIVE DIAGNOSIS Acute appendicitis. PROCEDURE PERFORMED Laparoscopic appendectomy. SURGEON Dr. Marlen Linton. STRATEGIC CONSULTANT: TRLula. ANESTHESIA GETA. IV FLUIDS See anesthesia sheet. ESTIMATED BLOOD LOSS: 5 cc. DRAINS: None. COMPLICATIONS: None. WOUND CLASSIFICATION: Unclean, contaminated. FINDINGS Indurated distended appendix with some adhesions. No evidence of gross per perforation. However, minimal ascitic fluid. SPECIMENS: Specimens were appendix INDICATION The patient is a 60-year-old male who presented with acute onset of right lower quadrant abdominal pain. The patient stated pain has been going on for approximately 24 hours and continued to get worst, initially periumbilical migrating right lower quadrant. The patient decided to come to the emergency department for further evaluation including CT scan findings of distended indurated acute appendicitis, leukocytosis as well. Decision was made for laparoscopic appendectomy. DETAILS OF PROCEDURE The patient is taken operating suite, placed in supine position he was prepped and draped in usual sterile fashion after induction of general endotracheal anesthesia. A brief time-out done stating correct patient, procedure, and surgical site and overall examine this. Attention first directed to the umbilicus where stab ryland incision was made after injection of local anesthetic. Veress needle placed, confirmation with saline drop test for intra-abdominal placement. Abdomen insufflated to 50 mm pneumoperitoneum. The Veress needle was changed for a 5-mm endoscope. The Visiport was done under direct visualization. The inspection showed no evidence of injury. Two other ports were then placed. One 5 mm cubic, followed by 12 mm left lower quadrant port. The patient then placed Trendelenburg and to the left. The right lower quadrant was identified, the cecum was identified. There is noted to be significant amount of mesenteric fat. This did not preclude us from taking the appendix out, although was somewhat difficult to identify initially the appendix. The appendix was noted to be indurated and stuck somewhat to the posterior peritoneum in the right lower quadrant. This was mobilized to its attachments and adhesions. Appendiceal base was grasped with a grasper and retracted anteriorly. A window was made with a [place] grasper at the base of the meso appendix. White load 45 Endo-AKBAR stapler was used to transect the base of the appendix. Next the mesoappendix was then transected. This was done using two white load staplers. The appendix was then placed in the EndoCatch bag and removed through the left lower quadrant trocar. The hemostasis was obtained with electro Bovie cautery in the staple line was hemostatic. Again noted, there is minimal almost appeared to be ascites fluid, kind of orr, brownish fluid. Again the appendix did not appear perforated. A suture closure device was used for a 0 Vicryl trans fascial suture to the left lower quadrant after portion had been removed. 4-0 Monocryl placed subcuticular sutures at all ports placed. Sterile dressings then placed. The patient tolerated procedure well. No intraoperative complication. All lap, instrument counts were at the end of the procedure. MD JOSY Ann/kaden /11:47 PM /7:09 AM
[2016-10-20 08:59] LABS: ALKALINE PHOSPHATASE 80 U/L (45-117); ALT (GPT) 17 U/L (12-78); ANION GAP 9 MEQ/L (5-15); AST (GOT) 9 U/L (15-37); BICARBONATE 29.3 MEQ/L (21.0-32.0); BLOOD UREA NITROGEN 14 MG/DL (7-18); CHLORIDE 99 MEQ/L (98-107); GLOMERULAR FILTRATION RATE 88 ML/MIN (>89); POTASSIUM 4.2 MEQ/L (3.5-5.1); SODIUM (NA) 137 MEQ/L (136-145); TOTAL BILIRUBIN ADULT 0.8 MG/DL (0.2-1.0)
[2016-10-20] MEDS ORDERED: ASPIRIN EC 325 MG TABEC PO SCH (09:00)
[2016-10-20] MEDS ORDERED: BUMETANIDE 1 MG TAB PO SCH (09:00)
[2016-10-20] MEDS ORDERED: LISINOPRIL 20 MG TAB PO SCH (09:00)
[2016-10-20] MEDS ORDERED: PRAVASTATIN SOD 40 MG TAB PO SCH (09:00)
[2016-10-20] MEDS ORDERED: HYDROCHLOROTHIAZIDE 25 MG TAB PO SCH (09:00)
[2016-10-20] MEDS ORDERED: DOCUSATE SODIUM 50 MG/SENNA 8.6 MG TAB PO SCH (09:00)
[2016-10-20] MEDS ORDERED: SODIUM CHLORIDE 0.9% FLUSH 10 ML FLUSH IV FLUSH SCH (09:00)
[2016-10-20] MEDS ORDERED: POTASSIUM CHLORIDE 20 MEQ CONTROLLED RELEASE TAB PO SCH (09:00)
[2016-10-20] MEDS ORDERED: CARVEDILOL 12.5 MG TAB PO SCH (09:00)
--- NOTE | 2016-10-20 10:02 | HHI.PR ---
Subjective Subjective Notes no acute issues, tolerating clears, oob Objective Vitals/I&O Vital Signs Date Time Temp Pulse Resp B/P Pulse Ox O2 Delivery O2 Flow Rate FiO2 10/20/16 04:00 96.3 66 17 117/67 96 10/20/16 01:00 Nasal Cannula 2 Labs Laboratory Tests Test 10/19/16 10/19/16 10/19/16 10/20/16 18:08 18:15 19:57 07:11 White Blood Count 14.9 12.9 Red Blood Count 4.89 4.58 Hemoglobin 14.8 13.7 Hematocrit 42.9 40.7 Mean Corpuscular Volume 87.8 88.9 Mean Corpuscular Hemoglobin 30.2 29.8 Mean Corpuscular Hemoglobin 34.4 33.5 Concent Red Cell Distribution Width 13.0 13.3 Platelet Count 227 219 Mean Platelet Volume 9.0 8.7 Neutrophils (%) (Auto) 81.9 83.6 Lymphocytes (%) (Auto) 9.1 8.1 Monocytes (%) (Auto) 7.9 7.9 Eosinophils (%) (Auto) 0.5 0.0 Basophils (%) (Auto) 0.6 0.4 Neutrophils # (Auto) 12.2 10.8 Lymphocytes # (Auto) 1.4 1.0 Monocytes # (Auto) 1.2 1.0 Eosinophils # (Auto) 0.1 0.0 Basophils # (Auto) 0.1 0.1 CBC Comment DIFF FINAL DIFF FINAL Differential Comment Prothrombin Time 10.7 Prothromb Time International 1.0 Ratio Activated Partial 24.9 Thromboplast Time Sodium Level 135 137 Potassium Level 5.2 4.2 Chloride Level 100 99 Carbon Dioxide Level 30.4 29.3 Anion Gap 5 9 Blood Urea Nitrogen 15 14 Creatinine 1.03 1.05 Estimat Glomerular Filtration 90 88 Rate Random Glucose 158 221 Calcium Level 9.0 8.5 Total Bilirubin 0.7 0.8 Aspartate Amino Transf 52 9 (AST/SGOT) Alanine Aminotransferase 21 17 (ALT/SGPT) Alkaline Phosphatase 94 80 Total Protein 7.7 7.0 Albumin 3.7 3.5 Lipase 87 Lactic Acid Level 0.9 Urine Color LIGHT-YELLOW Urine Turbidity CLEAR Urine pH 6.0 Urine Specific [place] 1.019 Urine Protein NEG Urine Glucose (UA) NEG Urine Ketones NEG Urine Occult Blood NEG Urine Nitrite NEG Urine Bilirubin NEG Urine Urobilinogen LESS THAN 2.0 Urine Leukocyte Esterase NEG Urine WBC LESS THAN 1 Microscopic Urinalysis Comment CULT NOT INDICATED Cardiovascular: Regular Lungs: Clear Abdomen: Other (soft incisional tenderness, scant dry blood) A/P Assessment and Plan POD 1 lap appy non perforated PLAN OOB Reg diet pain control wean ivf d/c later today if tolerated reg diet Angel Linton MD Oct 20, 2016 10:01
--- NOTE | 2016-10-20 11:03 | HHI.FPPN ---
Subjective Remarks Patient seen and examined this morning. Afebrile vital signs stable. Patient is status post laparoscopic appendectomy. He is able to sit up and walk around. His pain is tolerable. He denies any fevers or chills. He denies any drainage from the incision sites. He is hungry and wants to slowly progress his diet. If he is able to tolerate a regular diabetic diet and anticipate discharge later today. He agrees with this plan of care. Endorses: None Denies: Fever, chills, nausea, vomiting, shortness of breath, chest pain, headache, abdominal pain, calf pain (Stephen Tillman MD R3) Objective Vitals Vital Signs Date Time Temp Pulse Resp B/P Pulse Ox O2 Delivery O2 Flow Rate FiO2 10/20/16 08:00 98.7 67 18 148/72 94 10/20/16 04:00 96.3 66 17 117/67 96 10/20/16 01:15 96.3 66 17 117/67 96 10/20/16 01:00 66 19 130/63 96 Nasal Cannula 2 10/20/16 00:45 67 21 133/65 97 Nasal Cannula 3 10/20/16 00:15 67 21 147/58 97 Nasal Cannula 3 10/20/16 00:05 98.3 68 20 156/73 97 Nasal Cannula 3 10/20/16 00:00 98.3 71 17 144/81 93 10/19/16 18:37 24 10/19/16 18:07 96 Room Air 10/19/16 18:05 72 20 158/83 95 Room Air 10/19/16 17:24 99.3 69 17 162/79 98 I/O 10/19/16 10/19/16 10/19/16 10/20/16 10/20/16 10/20/16 07:00 15:00 23:00 07:00 15:00 23:00 Intake Total 480 ml Balance 480 ml Intake Oral 480 ml # Voids 0 # Bowel Movements 0 (Stephen Tillman MD R3) Result Diagram: 10/20/16 0711 10/20/16 0711 Imaging Last Impressions Abdomen/Pelvis CT 10/19/16 1451 Signed Impressions: Service Date/Time: Wednesday, October 19, 2016 19:26 - CONCLUSION: 1. Abnormal appearance of the cecum and appendix with diffuse wall thickening and some fluid tracking posterior to the appendix. Findings are suspicious for appendicitis with associated inflammatory changes in the cecum. 2. Dissection of the aorta extending into the iliac artery with contrast present in both the true and false lumens. There is contrast seen in both renal arteries with each renal artery arising from a different compartment. Bertrand Clarke MD Objective Remarks GEN: Well-developed, well-nourished patient. No acute distress. CV: Regular rate and rhythm 4/6 systolic murmur loudest in the right upper sterna border with palpable thrill. LUNGS: Clear to auscultation bilaterally. Normal respiratory effort. No wheezes , rales, rhonchi. GI: Soft, nondistended. No palpable masses. Bowel sounds WNL. Incision is clean dry and intact. Mild right lower quadrant abdominal pain, mild tenderness around incision sites EXT: No edema. NEURO/PSYCH: Afocal. Awake, alert, and oriented x3. Appropriate insight and judgment. Procedures 10/20/16: Laparoscopic appendectomy Medications and IVs Current Medications Medications (Trade) Dose Ordered Sig/[place] Route Start Time Stop Time Status Last Admin (NS 1000 ml Inj) 1,000 ml @ 180 mls/hr Q5H34M IV 10/19/16 21:13 (NS Flush) 2 ml UNSCH PRN IV FLUSH 10/19/16 21:15 (NS Flush) 2 ml BID IV FLUSH 10/20/16 09:00 (Zofran Inj) 4 mg Q6H PRN IVP 10/19/16 21:15 (Narcan Inj) 0.4 mg UNSCH PRN IV 10/19/16 21:15 (Yasmeen-Colace) 1 tab BID PO 10/20/16 09:00 10/20/16 09:42 (Milk Of Magnesia Liq) 30 ml Q12H PRN PO 10/19/16 21:15 (Norvasc) 10 mg DAILY PO 10/20/16 09:00 10/20/16 09:41 (Bumetanide) 0.5 mg DAILY PO 10/20/16 09:00 10/20/16 09:38 (Coreg) 25 mg BID PO 10/20/16 09:00 10/20/16 09:40 (Catapres) 0.2 mg HS PO 10/20/16 21:00 (KCl) 20 meq DAILY PO 10/20/16 09:00 Hold (Prinivil) 20 mg BID PO 10/20/16 09:00 10/20/16 09:40 (Pravachol) 40 mg DAILY PO 10/20/16 09:00 (D50w (Vial) Inj) 50 ml UNSCH PRN IV 10/19/16 21:30 (Glucagon Inj) 1 mg UNSCH PRN OTHER 10/19/16 21:30 (Pill Splitter) 1 ea UNSCH PRN OTHER 10/19/16 21:45 (Hydrodiuril) 25 mg BID PO 10/20/16 09:00 10/20/16 09:41 (Morphine Inj) 2 mg Q3H PRN IV PUSH 10/19/16 23:45 Tramadol HCl 50 mg 50 mg Q4H PRN PO 10/19/16 23:45 (Zosyn 3.375 Gm Premix) 50 ml @ 100 mls/hr Q8H IV 10/20/16 04:00 10/20/16 06:58 Miscellaneous Information ALL NURSING DEPARTME... UNSCH PRN .XX 10/20/16 00:00 10/21/16 00:00 (Ecotrin Ec) 325 mg DAILY PO 10/20/16 09:00 (Stephen Tillman MD R3) A/P Assessment and Plan 60 y/o male w/hx of DM2 and HTN admitted for appendicitis per CT scan. General surgery consulted, patient to go to OR [facility] for appendectomy. We will manage his other medical conditions while patient recovers and d/c w/Gen Surg recommendations. Discharge Planning Anticipate discharge later today if tolerating regular diet (Stephen Tillman MD R3) Attending Attestation THIS CASE WAS DISCUSSED WITH THE RESIDENT PHYSICIANS. I HAVE REVIEWED THE RECORD AND EXAMINATION PERFORMED. AGREE WITH THE ABOVE NOTE AND PLAN OF CARE WAS DISCUSSED. I HAVE AUTHORIZED THE ORDER FOR ADMISSION TO AN IN-PATIENT STATUS. (Ru Veras MD) Problem List: (1) Appendicitis Status: Acute Plan: Patient is status post upper scopic appendectomy for appendicitis. Progress diet as tolerated -Gen. surgery consulted, cleared for discharge if he tolerates regular diet (2) HTN (hypertension) Status: Acute Plan: Last BP 148/72 carvedilol 25 mg PO BID - clonidine 0.2 mg daily - bumetanide 1 mg daily (3) Aortic dissection Status: Chronic Plan: CT scan shows Dissection of the aorta extending into the iliac artery with contrast present in both the true and false lumens Chronic, following with cardiology (4) HLD (hyperlipidemia) Status: Acute Plan: Continue simvastatin 20mg, ASA 325 mg (5) DM2 (diabetes mellitus, type 2) Status: Acute Plan: Progressing diet to regular diabetic diet Insulin sliding scale Monitor glucose with Accu-Cheks. -Follow up with PCP for further management (6) FEN Status: Acute Plan: FEN: Electrolytes as needed Diet: Full liquid diet to regular diabetic diet DVT prophy: SCDs only for procedure GI prophy: Not indicated Code: Full (Stephen Tillman MD R3) Problem Qualifiers (1) Appendicitis: Qualified Code: K35.80 - Acute appendicitis, unspecified acute appendicitis type (2) HTN (hypertension): Qualified Code: I10 - Hypertension, unspecified type (3) Aortic dissection: Qualified Code: I71.00 - Dissection of aorta, unspecified portion of aorta (4) HLD (hyperlipidemia): Qualified Code: E78.5 - Hyperlipidemia, unspecified hyperlipidemia type (5) DM2 (diabetes mellitus, type 2): Qualified Code: E11.8 - Type 2 diabetes mellitus with complication, unspecified watermaster insulin use status Stephen Tillman MD R3 Oct 20, 2016 11:02 Ru Veras MD Oct 21, 2016 14:28
[2016-10-20] MEDS ORDERED: TYLE325T PO (11:53)
[2016-10-20] MEDS ORDERED: ULTR50TA5 PO ×2 (11:53→17:31)
--- NOTE | 2016-10-20 11:55 | HHI.DCPOC ---
Discharge Care Plan Diagnosis: (1) Appendicitis (2) HTN (hypertension) (3) DM2 (diabetes mellitus, type 2) Goals to Promote Your Health * To prevent worsening of your condition and complications * To maintain your health at the optimal level Directions to Meet Your Goals Take your medications as prescribed Follow your dietary instruction Follow activity as directed Keep your appointments as scheduled Take your immunizations and boosters as scheduled If your symptoms worsen call your PCP, if no PCP go to Urgent Care Center or Emergency Room Smoking is Dangerous to Your Health. Avoid second hand smoke Call the 24-hour hour crisis hotline for domestic abuse at Stephen Tillman MD R3 Oct 20, 2016 11:55
[2016-10-20 12:00] VITALS: BP 151/79; PULSE 69; RESP 20; TEMP 98.6; O2SAT 97
[2016-10-20 14:59] LABS: HEMOGLOBIN A1a 1.4 %; HEMOGLOBIN A1b 0.9 %; HEMOGLOBIN Ao 78.8 %; HEMOGLOBIN F 2.4 %; HEMOGLOBIN P3 4.4 %
[2016-10-20 16:00] VITALS: BP 125/72; PULSE 72; RESP 18; TEMP 97.5; O2SAT 93
--- NOTE | 2016-10-20 19:27 | MB ---
cc: MARLEN MEJIA MD DATE OF CONSULTATION 10/19/16 REASON FOR CONSULTATION Right lower quadrant abdominal pain, acute appendicitis. HISTORY OF PRESENT ILLNESS The patient is a 60-year-old male who presents with acute onset of right lower quadrant abdominal pain 11/25. The pain is crampy. It was periumbilical, lower abdomen and radiated to the right lower quadrant. He states the pain started approximately 24 hours ago. The patient was unable to sleep, continued to get worse, was worse with movement and better with lying still, some improvement with pain medication. Therefore, he came to the emergency department for evaluation including CT scan showing an acute inflamed appendicitis. The patient also had a leukocytosis of 14,000. Therefore, general surgery was consulted. On my exam, the patient is resting a little more comfortably, but he states significant pain. He has never had pain quite like this before in his life. He further denied any nausea, vomiting, fevers or chills. 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 PAST MEDICAL HISTORY 1. Diabetes type 2, 2. Hyperlipidemia, 3. Hypertension. 4. Aortic dissection PAST SURGICAL HISTORY 1. Aortic dissection repair 2. Shoulder repair 3. Knee surgery ALLERGIES HYDROCODONE OXYCODONE METFORMIN FAMILY HISTORY Mother stroke. Father healthy. Brother with stem cell cancer. SOCIAL HISTORY Denies smoking, ETOH or IVDA. MEDICATIONS See EMR. REVIEW OF SYSTEMS GENERAL: The patient denies fevers, chills. HEENT: Denies eye pain, ear pain. NECK: Denies swelling or pain. RESIRATORY: Denies shortness of breath or cough. CARDIOVASCULAR: Denies chest pain, history of aortic dissection. GI: Complains of abdominal pain. Denies nausea, vomiting. : Denies dysuria, hematuria. MUSCULOSKELETAL: Denies arthralgia, myalgia. INTEGUMENT: Denies abnormal pigmentation or lesions. DERMATOLLOGIC: Denies easy bruising or hemarthrosis. NEUROLOGIC: Denies numbness or tingling. PSYCHIATRIC: Denies confusion or anxiety. PHYSICAL EXAMINATION GENERAL: The patient in no acute distress. VITAL SIGNS: Temperature is 99.3, pulse 69, respirations 17, blood pressure 162/79, 98% saturation on room air. HEENT: Pupils equal, round and reactive. Normocephalic, atraumatic head. NECK: Supple. Trachea midline. No JVD. HEART: S1-S2 regular rhythm. Positive murmur. RESPIRATORY: Clear to auscultation bilateral expansion. ABDOMEN: Soft, positive tenderness to palpation right lower quadrant. Positive Rovsing's sign. No rebound or guarding. MUSCULOSKELETAL: Warm, well-perfused. NEUROLOGIC: Alert and oriented times four. 5/5 motor all extremities. INTEGUMENT: No obvious masses or lesions. PSYCHIATRIC: Good insight, good judgment. LABORATORY DATA WBC 14.9, hemoglobin 14.8, hematocrit 42.9, platelets 227. Sodium 135, potassium 5.2, chloride 100, BUN 15, creatinine one, lactate 0.9, A1c 9.8, AST 53, ALT 21, lipase 87, T bili 0.7, INR is one. IMAGING STUDIES CT reviewed by myself showing indurated thickened appendix with minimal fluid, stranding consistent with acute appendicitis. Aortic dissection extending into iliac. ASSESSMENT The patient is a 60-year-old male, several medical issues, presents with acute onset of right lower quadrant pain consistent with appendicitis. PLAN A full clinical radiologic laboratory and workup. The patient with above-named issues including acute appendicitis. At this point, the patient needs to go to OR for operative intervention including laparoscopic appendectomy as patient does have a risk of perforation of appendix if left untreated. This was discussed with the patient in detail. He stated understanding. Discussed with Dr. Doran of cardiology who has cleared him for surgical intervention. Further discussed with medical team for optimization and management. The patient will be n.p.o., IV fluids, IV antibiotics, pain control. We will take the patient to the OR. MD JOSY Ann/ /5:38 PM /7:09 PM
[2016-10-20] MEDS ORDERED: cloNIDine HCL 0.2 MG TAB PO SCH (21:00)
[2016-10-26] MEDS ORDERED: DULC10SU3 RECTAL (12:20)
[2016-10-26] MEDS ORDERED: PERI8.6T PO (12:20)
== END 2016-10-20 19:02 | disposition home or self-care (01) | DRG 341 ==
LOC: NEPC 17:22 → NEDA 20:54 → OBSVTOIN 21:16 → N06B 10-20 01:08
PROVIDERS: ADMIT Family Medicine; ATTEND Family Medicine
PROC: 0DTJ4ZZ Resection of Appendix, Percutaneous Endoscopic Approach (ICD-10-PCS; principal; 2016-10-19 22:10)
DX: K35.80 Unspecified acute appendicitis (principal); I71.00 Dissection of unspecified site of aorta; E11.8 Type 2 diabetes mellitus with unspecified complications; E78.5 Hyperlipidemia, unspecified; I10 Essential (primary) hypertension; Z79.4 Long term (current) use of insulin; Z79.82 Long term (current) use of aspirin
CPT/HCPCS: 74177; 80053; 81001; 82948; 83036; 83605; 83690; 85025; 85610; 85730; 88304; 96361; 96374; 96375; 96376; G8987-GP; G8988-GP; J0131; J1815; J2250; J2270; J2405; J2543; J2710; J3010; J7030; J7120; Q9967

== ENCOUNTER 2017-07-21 20:24 | Emergency (ER) | payer MEDICARE ==
[~2017-07-21 20:24] MED LIST changes: -1-ME1LIQ PO; +AMLO10 PO; +ASPI-146 PO; -ASPI325T24 PO; +AZIT250T3 PO; -BYET10IN2 SQ; -CARV25TA PO; -CLON.2 PO; +CLON0.2T PO; +CORE25TA PO; +DULC10SU3 RECTAL; -GABA600T PO; -IBUP800T23 PO; -LACTATED RINGER'S 1000 ML INJ 1,000 ML IV ONE; -NEOSTIGMINE 3 MG/3 ML SYR IV ONE; -ONDANSETRON HCL 4 MG/2 ML VIAL IV PUSH ONE; +PERI8.6T PO; +POTA-163 PO; -POTA20IN3 PO; -PROPOFOL 200 MG/20 ML AMP IV ONE; -SIMV20 PO; +SIMV20TA PO; +TRAM50 PO; +TYLE325T PO; +[UNRECOGNIZED DRUG - CODE]; -ePHEDrine/NS 25 MG/5 ML SYR IV ONE
[2017-07-21 20:27] VITALS: BP 171/90; PULSE 82; RESP 18; TEMP 98.4; O2SAT 97
[2017-07-21 20:50] VITALS: BP 170/92; PULSE 78; RESP 18; O2SAT 95
--- NOTE | 2017-07-21 20:55 | PD ---
HPI Chief Complaint: Abdominal Pain Time Seen by Provider: 20:40 Travel History International Travel<30 days: No Contact w/Intl Traveler<30days: No Traveled to known affect area: No History of Present Illness HPI 61-year-old male complains of abdominal pain, and nausea and diarrhea. Patient states that he started having abdominal discomfort and nausea last night. Patient states that he started having abdominal cramping with diarrhea this afternoon. Patient denies any headache. Patient denies any chest pain or shortness of breath. Patient states abdominal pain and cramping pain diffuse of the abdomen. Patient denies any pain radiation. Patient denies any dysuria frequency. Patient denies any fever chills. Patient denies any back pain. Patient has history hypertension, type 2 diabetes, hyperlipidemia. Patient status post aortic dissection surgery repair in 2009. PFSH Past Medical History Hx Anticoagulant Therapy: Yes (ASA 325MG) Cardiovascular Problems: Yes (HX AORTIC DISSECTION) High Cholesterol: Yes Diabetes: Yes (TYPE 2) Patient Takes Glucophage: No Diminished Hearing: No Hypertension: Yes Respiratory: Yes Immunizations Current: Yes Past Surgical History Appendectomy: Yes Cardiac Surgery: Yes (aortic dissection) Social History Alcohol Use: No Tobacco Use: No Substance Use: No Allergies-Medications (Allergen,Severity, Reaction): Coded Allergies: hydrocodone (Unverified Allergy, Severe, Confusion, 07/21/17) oxycodone (Unverified Allergy, Severe, Confusion, 07/21/17) metformin (Unverified Adverse Reaction, Severe, aortic dissection, 07/21/17) Reported Meds & Prescriptions Reported Meds & Active Scripts Active Flagyl (Metronidazole) 500 Mg Tab 500 Mg PO BID Cipro (Ciprofloxacin HCl) 250 Mg Tab 250 Mg PO BID Humalog Inj (Insulin Human Lispro) 1,000 Unit/10 Ml Vial 20 Units SQ HS Give within 1 hour after dinner. Coreg (Carvedilol) 25 Mg Tab 25 Mg PO BID Norvasc (Amlodipine Besylate) 10 Mg Tab 10 Mg PO DAILY Clonidine (Clonidine HCl) 0.2 Mg Tab 0.2 Mg PO HS Simvastatin 20 Mg Tab 20 Mg PO DAILY Ultram (Tramadol HCl) 50 Mg Tab 50 Mg PO Q4H PRN . Zestoretic (Lisinopril-Hctz) 20-25 Mg Tab 1 Tab PO BID Ulticare Short Pen Needle 31G X 8 mm (Insulin Pen Needle) 31 Gauge X 5/16" Mis Units HS Use nightly with [employer] pen for management of diabetes Reported Potassium Chloride ER (Potassium Chloride) 20 Meq Tab 20 Meq PO DAILY Lantus Solostar Pen Inj (Insulin Glargine) 300 Unit/3 Ml Pen 30 Units SQ HS Bumetanide 1 Mg Tab 0.5 Mg PO DAILY Ecotrin Regular Strength (Aspirin) 325 Mg Tabdr 325 Mg PO DAILY Review of Systems General / Constitutional: No: Fever Eyes: No: Visual changes HENT: No: Headaches Cardiovascular: No: Chest Pain or Discomfort Respiratory: No: Shortness of Breath Gastrointestinal: Positive: Nausea, Diarrhea, Abdominal Pain Genitourinary: No: Dysuria Musculoskeletal: No: Pain Skin: No Rash Neurologic: No: Weakness Psychiatric: No: Depression Endocrine: No: Polydipsia Hematologic/Lymphatic: No: Easy Bruising Physical Exam Narrative GENERAL: Well-nourished, well-developed patient. SKIN: Focused skin assessment warm/dry. HEAD: Normocephalic. EYES: No scleral icterus. No injection or drainage. NECK: Supple, trachea midline. No JVD or lymphadenopathy. CARDIOVASCULAR: Regular rate and rhythm without murmurs, gallops, or rubs. RESPIRATORY: Breath sounds equal bilaterally. No accessory muscle use. GASTROINTESTINAL: Abdomen soft, nondistended. Patient has mild diffuse tenderness over the abdomen. No rebound tenderness. No mass. MUSCULOSKELETAL: No cyanosis, or edema. BACK: Nontender without obvious deformity. No CVA tenderness. Neurologic exam normal. Data Data Last Documented VS Vital Signs Date Time Temp Pulse Resp B/P (MAP) Pulse Ox O2 Delivery O2 Flow Rate FiO2 07/21/17 23:12 74 22 123/59 (80) 93 Room Air 07/21/17 20:27 98.4 Orders Orders Electrocardiogram (07/21/17 20:49) Complete Blood Count With Diff (07/21/17 20:49) Comprehensive Metabolic Panel (07/21/17 20:49) Prothrombin Time / Inr (Pt) (07/21/17 20:49) Act Partial Throm Time (Ptt) (07/21/17 20:49) Lipase (07/21/17 20:49) Urinalysis - C+S If Indicated (07/21/17 20:49) Iv Access Insert/Monitor (07/21/17 20:49) Ecg Monitoring (07/21/17 20:49) Oximetry (07/21/17 20:49) Sodium Chlor 0.9% 1000 Ml Inj (Ns 1000 M (07/21/17 21:00) Ondansetron Inj (Zofran Inj) (07/21/17 21:00) Pantoprazole Inj (Protonix Inj) (07/21/17 21:00) Ct Abd/Pel W/O Iv Contrast (07/21/17 20:49) Sodium Chlor 0.9% 1000 Ml Inj (Ns 1000 M (07/21/17 23:45) Piperacil-Tazo 2.25 Gm Premix (Zosyn 2.2 (07/21/17 23:45) Metronidazole 500 Mg Inj (Flagyl 500 Mg (07/21/17 23:45) Insulin Human Regular Inj (Novolin R Inj (07/22/17 00:00) Ketorolac Inj (Toradol Inj) (07/22/17 00:45) Ed Discharge Order (07/22/17 00:32) Labs Laboratory Tests Test 07/21/17 21:14 07/21/17 21:49 White Blood Count 11.9 TH/MM3 Red Blood Count 4.99 MIL/MM3 Hemoglobin 15.3 GM/DL Hematocrit 43.9 % Mean Corpuscular Volume 88.1 FL Mean Corpuscular Hemoglobin 30.8 PG Mean Corpuscular Hemoglobin Concent 34.9 % Red Cell Distribution Width 12.8 % Platelet Count 273 TH/MM3 Mean Platelet Volume 9.1 FL Neutrophils (%) (Auto) 76.3 % Lymphocytes (%) (Auto) 14.1 % Monocytes (%) (Auto) 7.9 % Eosinophils (%) (Auto) 1.0 % Basophils (%) (Auto) 0.7 % Neutrophils # (Auto) 9.1 TH/MM3 Lymphocytes # (Auto) 1.7 TH/MM3 Monocytes # (Auto) 0.9 TH/MM3 Eosinophils # (Auto) 0.1 TH/MM3 Basophils # (Auto) 0.1 TH/MM3 CBC Comment DIFF FINAL Differential Comment Prothrombin Time 10.1 SEC Prothromb Time International Ratio 1.0 RATIO Activated Partial Thromboplast Time 23.2 SEC Blood Urea Nitrogen 31 MG/DL Creatinine 1.45 MG/DL Random Glucose 403 MG/DL Total Protein 7.7 GM/DL Albumin 4.1 GM/DL Calcium Level 9.4 MG/DL Alkaline Phosphatase 120 U/L Aspartate Amino Transf (AST/SGOT) 26 U/L Alanine Aminotransferase (ALT/SGPT) 24 U/L Total Bilirubin 0.6 MG/DL Sodium Level 133 MEQ/L Potassium Level 4.6 MEQ/L Chloride Level 97 MEQ/L Carbon Dioxide Level 28.7 MEQ/L Anion Gap 7 MEQ/L Estimat Glomerular Filtration Rate 60 ML/MIN Lipase 245 U/L Urine Color LIGHT-YELLOW Urine Turbidity CLEAR Urine pH 5.0 Urine Specific [place] 1.024 Urine Protein NEG mg/dL Urine Glucose (UA) 1000 mg/dL Urine Ketones NEG mg/dL Urine Occult Blood NEG Urine Nitrite NEG Urine Bilirubin NEG Urine Urobilinogen LESS THAN 2.0 MG/DL Urine Leukocyte Esterase NEG Urine WBC LESS THAN 1 /hpf Urine Mucus FEW /lpf Microscopic Urinalysis Comment CULT NOT INDICATED MDM Medical Decision Making Medical Screen Exam Complete: Yes Emergency Medical Condition: Yes Interpretation(s) 23:30 PM. Last Impressions Abdomen/Pelvis CT 07/21/172048 Signed Impressions: Service Date/Time: Friday, July 21, 2017 21:55 - CONCLUSION: 1. Mild wall thickening involving the distal ileum and terminal ileum as well as mild perienteric inflammatory changes raising possibility of acute enteritis. Clinical correlation is recommended. 2. Stable chronic dissection of the abdominal aorta and left iliac artery. Solis Zavala MD 23:30 PM. CBC WBC 11.9. 76 neutrophil. Sodium 133. BUN 31. Creatinine 1.45. GFR 60. Glucose 403. UA negative. Differential Diagnosis Differential diagnosis including gastroenteritis, gastritis, PUD, pancreatitis, cholecystitis, colitis, UTI, pyelonephritis, nephrolithiasis. Narrative Course 61-year-old male with nausea, abdominal cramping, diarrhea. Normal saline solution 1 L IV bolus. Normal saline solution 70 cc an hour. Protonix 40 mg IV. Zofran 4 mg IV. Flagyl 500 mg IV given. Novolin R, 7 units IV given. Diagnosis Primary Impression: Enteritis Additional Impressions: Acute kidney injury Hyperglycemia Patient Instructions: General Instructions Additional Instructions: Cipro and Flagyl as directed. Accu-Chek blood sugar daily. Follow-up with personal physician. Return if persistent problem or worse. Med/Other Pt SpecificInfo: Prescription(s) given Scripts Tramadol (Ultram) 50 Mg Tab 50 MG PO Q6H Y for PAIN, #12 TAB 0 Refills Prov: Dariusz Sauer MD 07/22/17 Metronidazole (Flagyl) 500 Mg Tab 500 MG PO BID for Infection, #20 TAB 0 Refills Prov: Dariusz Sauer MD 07/21/17 Ciprofloxacin (Cipro) 250 Mg Tab 250 MG PO BID for Infection, #20 TAB 0 Refills Prov: Dariusz Sauer MD 07/21/17 Disposition: 01 DISCHARGE HOME Condition: Stable Dariusz Sauer MD July 21, 2017 20:55
[2017-07-21] MEDS ORDERED: ONDANSETRON HCL 4 MG/2 ML VIAL IV PUSH ONE (21:00)
[2017-07-21] MEDS ORDERED: SODIUM CHLOR 0.9% 1000 ML INJ 1,000 ML IV SCH (21:00)
[2017-07-21] MEDS ORDERED: PANTOPRAZOLE SODIUM 40 MG VIAL IV PUSH ONE (21:00)
[2017-07-21 21:21] VITALS: O2SAT 96
[2017-07-21 21:25] LABS: AUTOMATED NEUTROPHIL # 9.1 TH/MM3 (1.8-7.7); BASOPHIL # 0.1 TH/MM3 (0-0.2); BASOPHIL % 0.7 % (0.0-2.0); EOSINOPHIL # 0.1 TH/MM3 (0-0.4); HEMATOCRIT 43.9 % (39.0-51.0); HEMOGLOBIN 15.3 GM/DL (13.0-17.0); LYMPH % 14.1 % (9.0-44.0); LYMPHOCYTE # 1.7 TH/MM3 (1.0-4.8); MEAN CELL VOLUME 88.1 FL (80.0-100.0); MEAN CORPUSCULAR HEMOGLOBIN 30.8 PG (27.0-34.0); MEAN CORPUSCULAR HGB CONC 34.9 % (32.0-36.0); MEAN PLATELET VOLUME 9.1 FL (7.0-11.0); MONO % 7.9 % (0.0-8.0); MONOCYTE # 0.9 TH/MM3 (0-0.9); NEUT % 76.3 % (16.0-70.0); PLATELET COUNT 273 TH/MM3 (150-450); RED BLOOD COUNT 4.99 MIL/MM3 (4.50-5.90); RED CELL DISTRIBUTION WIDTH 12.8 % (11.6-17.2); WHITE BLOOD COUNT 11.9 TH/MM3 (4.0-11.0)
[2017-07-21 21:33] LABS: PROTHROMBIN TIME - PATIENT 10.1 SEC (9.8-11.6)
[2017-07-21 21:43] LABS: ALBUMIN 4.1 GM/DL (3.4-5.0); ALKALINE PHOSPHATASE 120 U/L (45-117); ALT (GPT) 24 U/L (12-78); AST (GOT) 26 U/L (15-37); BICARBONATE 28.7 MEQ/L (21.0-32.0); BLOOD UREA NITROGEN 31 MG/DL (7-18); CALCIUM 9.4 MG/DL (8.5-10.1); CHLORIDE 97 MEQ/L (98-107); CREATININE 1.45 MG/DL (0.60-1.30); GLOMERULAR FILTRATION RATE 60 ML/MIN (>89); GLUCOSE,RANDOM 403 MG/DL (74-106); SODIUM (NA) 133 MEQ/L (136-145); TOTAL BILIRUBIN ADULT 0.6 MG/DL (0.2-1.0); TOTAL PROTEIN 7.7 GM/DL (6.4-8.2)
--- NOTE | 2017-07-21 22:13 | RADRPT ---
EXAM DATE/TIME: 07/21/2017 21:55 [facility] COMPARISON: CT ABDOMEN & PELVIS W CONTRAST, October 19, 2016, 19:26. INDICATIONS : Abdominal pain X 4 hours. ORAL CONTRAST: No oral contrast ingested. RADIATION DOSE: 27.10 CTDIvol (mGy) ; Patient body habitus MEDICAL HISTORY : Hypertension. Diabetes mellitus type 2. Aortic dissection SURGICAL HISTORY : Appendectomy. ENCOUNTER: Initial ACUITY: 1 day PAIN SCALE: 8/10 LOCATION: abdomen TECHNIQUE: Volumetric scanning of the abdomen and pelvis was performed. Using automated exposure control and ad justment of the mA and/or kV according to patient size, radiation dose was kept as low as reasonably achievable to obtain optimal diagnostic quality images. DICOM format image data is available electro nically for review and comparison. FINDINGS: LOWER LUNGS: The visualized lower lungs are clear. LIVER: Homogeneous density without lesion. There is no dilation of the biliary tree. No calcified gallston es. SPLEEN: Normal size without lesion. PANCREAS: Within normal limits. KIDNEYS: Normal in size and shape. There is no mass, stone, or hydronephrosis. ADRENAL GLANDS: Within normal limits. VASCULAR: There is a chronic aortic dissection which is grossly stable in appearance compared to the previous e xamination. The dissection appears to extend into the left iliac artery. BOWEL/MESENTERY: There is mild wall thickening involving the distal ileum and terminal ileum as well as mild perienter ic inflammatory changes raising possibility of acute enteritis. Clinical correlation is recommended. ABDOMINAL WALL: Within normal limits. RETROPERITONEUM: There is no lymphadenopathy. BLADDER: No wall thickening or mass. REPRODUCTIVE: Within normal limits. INGUINAL: There is no lymphadenopathy or hernia. MUSCULOSKELETAL: Within normal limits for patient age. CONCLUSION: 1. Mild wall thickening involving the distal ileum and terminal ileum as well as mild perienteric inf lammatory changes raising possibility of acute enteritis. Clinical correlation is recommended. 2. Stable chronic dissection of the abdominal aorta and left iliac artery. Solis Zvaala MD on July 21, 2017 at 22:05 Board Certified Radiologist. This report was verified electronically.
[2017-07-21 22:20] LABS: BILIRUBIN, URINE NEG (NEG); BLOOD, URINE NEG (NEG); GLUCOSE,URINE 1000 mg/dL (NEG); KETONE, URINE NEG (NEG); MUCUS URINE FEW /lpf (OCC); NITRITE,URINE NEG (NEG); URINE COLOR LIGHT-YELLOW (YELLW/STRAW); URINE LEUKOCYTE ESTERASE NEG (NEG)
[2017-07-21 23:12] VITALS: BP 123/59; PULSE 74; RESP 22; O2SAT 93
[2017-07-21] MEDS ORDERED: metroNIDAZOLE 500 MG INJ 100 ML IV ONE (23:45)
[2017-07-21] MEDS ORDERED: SODIUM CHLOR 0.9% 1000 ML INJ 1,000 ML IV ONE (23:45)
[2017-07-21] MEDS ORDERED: PIPERACIL-TAZO 2.25 GM PREMIX 50 ML IV ONE (23:45)
[2017-07-21] MEDS ORDERED: CIPR250T52 PO (23:56)
[2017-07-21] MEDS ORDERED: METR-1 PO (23:56)
[2017-07-22] MEDS ORDERED: INSULIN HUMAN REGULAR 1,000 UNITS/10 ML VIAL IV PUSH ONE
[2017-07-22] MEDS ORDERED: KETOROLAC TROMETHAMINE 30 MG/ML (IVP) VIAL IV PUSH ONE (00:45)
[2017-07-22] MEDS ORDERED: TRAM50 PO (00:55)
--- NOTE | 2017-07-22 10:43 | EKG ---
Date Performed: 07/21/2017 Time Performed: 20:58:19 PTAGE: 61 years EKG: Sinus rhythm POSSIBLE LEFT ATRIAL ENLARGEMENT ST DEVIATION AND MODERATE T-WAVE ABNORMALITY, CONSIDER LATERAL ISCH EMIA ABNORMAL ECG Since the PREVIOUS TRACING , no significant change noted PREVIOUS TRACIN05/05/2016 15.27 DOCTOR: Kash Weber Interpretating Date/Time 07/22/2017 10:41:31
== END 2017-07-22 01:23 | disposition home or self-care (01) ==
LOC: NEPE 20:24
DX: K52.9 Noninfective gastroenteritis and colitis, unspecified (principal); N17.9 Acute kidney failure, unspecified; E11.65 Type 2 diabetes mellitus with hyperglycemia; E78.00 Pure hypercholesterolemia, unspecified; I10 Essential (primary) hypertension; Z79.4 Long term (current) use of insulin
CPT/HCPCS: 74176; 80053; 81001; 83690; 85025; 85610; 85730; 93005; 96361; 96374; 96375; 99285; C9113; J1815; J2405; J7030

== ENCOUNTER 2017-08-04 07:50 | Emergency (ER) | payer MEDICARE ==
[~2017-08-04] VITALS: Ht 177.8 cm; Wt 138.5 kg
[~2017-08-04 07:50] MED LIST changes: -AZIT250T3 PO; +CIPR250T52 PO; -DULC10SU3 RECTAL; +METR-1 PO; -PERI8.6T PO; -TYLE325T PO
[2017-08-04 08:08] VITALS: BP 154/73; PULSE 70; RESP 16; TEMP 98.8; O2SAT 95
--- NOTE | 2017-08-04 08:41 | PD ---
HPI Chief Complaint: Cold / Flu Symptoms Time Seen by Provider: 08:16 Travel History International Travel<30 days: No Contact w/Intl Traveler<30days: No Traveled to known affect area: No History of Present Illness HPI 61-year-old male presents emergency department for evaluation of cough and congestion for the past 3-4 days. He states that he thinks his daughter brought home from high school and it is spread around her house. He states he did not get a whole lot of sleep last night because he has been up cough and congested. He states is also been having a sore throat and feeling like plugged in his ears. He states he has been having some minimal shortness of breath because his nasal passages are blocked. No fever. Symptoms moderate, gradually worsening, for the past 4 days, context and associated signs and symptoms as above. PFSH Past Medical History Hx Anticoagulant Therapy: Yes (ASA 325MG) Cardiovascular Problems: Yes (AAA) High Cholesterol: Yes Diabetes: Yes Patient Takes Glucophage: No Diminished Hearing: No Hypertension: Yes Respiratory: Yes Immunizations Current: Yes Past Surgical History Appendectomy: Yes Cardiac Surgery: Yes (aortic dissection) Other Surgery: Yes Social History Alcohol Use: No Tobacco Use: No Substance Use: No Allergies-Medications (Allergen,Severity, Reaction): Coded Allergies: hydrocodone (Unverified Allergy, Severe, Confusion, 08/04/17) oxycodone (Unverified Allergy, Severe, Confusion, 08/04/17) metformin (Unverified Adverse Reaction, Severe, aortic dissection, 08/04/17 ) Reported Meds & Prescriptions Reported Meds & Active Scripts Active Azithromycin 250 Mg Tab 250 Mg PO DIRECTED Take 2 tabs (500 mg) on day 1 then 1 tab daily x 4 days. Tessalon Perles (Benzonatate) 100 Mg Cap 100 Mg PO TID PRN 7 Days Mucinex DM (Dextromethorphan-Guaifenesin) 30-600 Mg Tab 1 Tab PO BID PRN 7 Days Humalog Inj (Insulin Human Lispro) 1,000 Unit/10 Ml Vial 20 Units SQ HS Give within 1 hour after dinner. Coreg (Carvedilol) 25 Mg Tab 25 Mg PO BID Norvasc (Amlodipine Besylate) 10 Mg Tab 10 Mg PO DAILY Clonidine (Clonidine HCl) 0.2 Mg Tab 0.2 Mg PO HS Simvastatin 20 Mg Tab 20 Mg PO DAILY Zestoretic (Lisinopril-Hctz) 20-25 Mg Tab 1 Tab PO BID Ulticare Short Pen Needle 31G X 8 mm (Insulin Pen Needle) 31 Gauge X /16" Mis Units HS Use nightly with solstar pen for management of diabetes Reported Potassium Chloride ER (Potassium Chloride) 20 Meq Tab 20 Meq PO DAILY Lantus Solostar Pen Inj (Insulin Glargine) 300 Unit/3 Ml Pen 30 Units SQ HS Bumetanide 1 Mg Tab 0.5 Mg PO DAILY Ecotrin Regular Strength (Aspirin) 325 Mg Tabdr 325 Mg PO DAILY Review of Systems Except as stated in HPI: all other systems reviewed are Neg Physical Exam Narrative GENERAL: Well-developed well-nourished no obvious distress. Pleasant, nontoxic appearance, obese. SKIN: Focused skin assessment warm/dry. HEAD: Atraumatic. Normocephalic. EYES: Pupils equal and round. No scleral icterus. No injection or drainage. ENT: No nasal bleeding or discharge. Mucous membranes pink and moist. TMs clear bilaterally, oropharynx clear moist, lungs clear. NECK: Trachea midline. No JVD. CARDIOVASCULAR: Regular rate and rhythm. No murmur appreciated. RESPIRATORY: No accessory muscle use. Clear to auscultation. Breath sounds equal bilaterally. GASTROINTESTINAL: Abdomen soft, non-tender, nondistended. Hepatic and splenic margins not palpable. MUSCULOSKELETAL: No obvious deformities. No clubbing. No cyanosis. No edema. NEUROLOGICAL: Awake and alert. No obvious cranial nerve deficits. Motor grossly within normal limits. Normal speech. PSYCHIATRIC: Appropriate mood and affect; insight and judgment normal. Data Data Last Documented VS Vital Signs Date Time Temp Pulse Resp B/P (MAP) Pulse Ox O2 Delivery O2 Flow Rate FiO2 08/04/17 08:29 96 08/04/17 08:08 98.8 70 16 154/73 (100) Orders Orders Chest, Pa & Lat (08/04/17 ) Ed Discharge Order (08/04/17 09:16) MDM Medical Decision Making Medical Screen Exam Complete: Yes Emergency Medical Condition: Yes Differential Diagnosis URI, pneumonia, bronchitis, severe bacterial illness unlikely, worsening aortic dissection unlikely peer Narrative Course Is a 7-year-old male with a history of chronic aortic dissection presents emergency department for evaluation of cough and congestion. He appears well in obvious distress and quite pleasant. Chest x-ray negative, otherwise he is reassuring. Vital signs reviewed and are reassuring as well. Discussed empiric antibiotics given his other medical problems symptomatic management return to ED criteria. Follow-up with a primary care physician. He is stable for discharge. Diagnosis Primary Impression: URI (upper respiratory infection) Med/Other Pt SpecificInfo: Prescription(s) given Scripts Azithromycin (Azithromycin) 250 Mg Tab 250 MG PO DIRECTED for Infection, #6 TAB 0 Refills Take 2 tabs (500 mg) on day 1 then 1 tab daily x 4 days. Prov: Solis Gomes MD 08/04/17 Benzonatate (Tessalon Perles) 100 Mg Cap 100 MG PO TID Y for COUGH for 7 Days, CAP 0 Refills Prov: Solis Gomes MD 08/04/17 Dextromethorphan-Guaifenesin (Mucinex DM) 30-600 Mg Tab 1 TAB PO BID Y for CHEST CONGESTION AND/OR COUGH for 7 Days, #14 TAB 0 Refills Prov: Solis Gomes MD 08/04/17 Disposition: 01 DISCHARGE HOME Condition: Stable Solis Gomes MD August 04, 2017 08:41
--- NOTE | 2017-08-04 09:07 | RADRPT ---
EXAM DATE/TIME: 08/04/2017 08:44 [facility] COMPARISON: CHEST SINGLE AP, May 05, 2016, 15:35. INDICATIONS : Chest pain MEDICAL HISTORY : Hypertension. Diabetes mellitus type 2. Aortic dissection SURGICAL HISTORY : Appendectomy. ENCOUNTER: Initial ACUITY: 3 days PAIN SCORE: 4/10 LOCATION: chest FINDINGS: Moderate cardiomegaly. The lungs are symmetrically aerated and clear. The central bronchopulmonary markings are well delineated. Both hemidiaphragms local. Evidence of prior median sternotomy with s ternal wire sutures. CONCLUSION: Moderate cardiomegaly. No focal infiltrates seen. Bertrand Clarke MD on August 04, 2017 at 9:04 Board Certified Radiologist. This report was verified electronically.
[2017-08-04] MEDS ORDERED: HUMIBIDDM PO (09:15)
[2017-08-04] MEDS ORDERED: BENZ100 PO (09:15)
[2017-08-04] MEDS ORDERED: AZIT250T3 PO (09:15)
== END 2017-08-04 09:32 | disposition home or self-care (01) ==
LOC: NEPC 07:50
DX: J06.9 Acute upper respiratory infection, unspecified (principal); R05 Cough; R06.02 Shortness of breath; I10 Essential (primary) hypertension; E11.9 Type 2 diabetes mellitus without complications; E78.00 Pure hypercholesterolemia, unspecified; Z79.4 Long term (current) use of insulin; Z79.82 Long term (current) use of aspirin; Z86.79 Personal history of other diseases of the circulatory system; Z87.09 Personal history of other diseases of the respiratory system
CPT/HCPCS: 71046; 99283

== ENCOUNTER 2017-08-12 23:10 | Emergency (ER) | payer MEDICARE ==
[~2017-08-12 23:10] MED LIST changes: +AZIT250T3 PO; +BENZ100 PO; -CIPR250T52 PO; +HUMIBIDDM PO; -METR-1 PO; -TRAM50 PO
[2017-08-12 23:11] VITALS: BP 157/90; PULSE 89; RESP 20; TEMP 98.8; O2SAT 96
[2017-08-13] MEDS ORDERED: guaiFENesin/CODEINE SYRUP 200 MG/20 MG/10 ML CUP PO ONE
[2017-08-13] MEDS ORDERED: AMOXICILLIN/CLAVULANATE K 875 MG TAB PO ONE
--- NOTE | 2017-08-13 00:21 | PD ---
HPI Chief Complaint: Respiratory Symptoms Time Seen by Provider: 23:32 Travel History International Travel<30 days: No Contact w/Intl Traveler<30days: No Traveled to known affect area: No History of Present Illness HPI Patient is a 61-year-old male presenting to the emergency department for evaluation of sinus pressure, nasal congestion, cough. Patient states coughing spells caused him to gag at times. Symptoms have been ongoing for 2 weeks, he was prescribed azithromycin as well as cough medicine 8 days ago, he states he was compliant with this. He denies any fevers, chills, abdominal pain, nausea, vomiting other than the gagging with the cough. Patient states that he feels dripping into the back of his throat. Symptom onset was gradual, symptoms are moderate and constant in nature. Patient states he gets sinusitis on a yearly basis. PFSH Past Medical History Hx Anticoagulant Therapy: Yes (ASA 325MG) Cardiovascular Problems: Yes (AAA) High Cholesterol: Yes Diabetes: Yes Patient Takes Glucophage: No Diminished Hearing: No Hypertension: Yes Respiratory: Yes Immunizations Current: Yes Past Surgical History Appendectomy: Yes Cardiac Surgery: Yes (aortic dissection) Other Surgery: Yes Social History Alcohol Use: No Tobacco Use: No Substance Use: No Allergies-Medications (Allergen,Severity, Reaction): Coded Allergies: hydrocodone (Unverified Allergy, Severe, delerium, 08/12/17) oxycodone (Unverified Allergy, Severe, delerium, 08/12/17) metformin (Unverified Adverse Reaction, Severe, delerium, 08/12/17) Reported Meds & Prescriptions Reported Meds & Active Scripts Active Azithromycin 250 Mg Tab 250 Mg PO DIRECTED Take 2 tabs (500 mg) on day 1 then 1 tab daily x 4 days. Tessalon Perles (Benzonatate) 100 Mg Cap 100 Mg PO TID PRN 7 Days Mucinex DM (Dextromethorphan-Guaifenesin) 30-600 Mg Tab 1 Tab PO BID PRN 7 Days Humalog Inj (Insulin Human Lispro) 1,000 Unit/10 Ml Vial 20 Units SQ HS Give within 1 hour after dinner. Coreg (Carvedilol) 25 Mg Tab 25 Mg PO BID Norvasc (Amlodipine Besylate) 10 Mg Tab 10 Mg PO DAILY Clonidine (Clonidine HCl) 0.2 Mg Tab 0.2 Mg PO HS Simvastatin 20 Mg Tab 20 Mg PO DAILY Zestoretic (Lisinopril-Hctz) 20-25 Mg Tab 1 Tab PO BID Ulticare Short Pen Needle 31G X 8 mm (Insulin Pen Needle) 31 Gauge X 5/16" Mis Units HS Use nightly with solstar pen for management of diabetes Reported Potassium Chloride ER (Potassium Chloride) 20 Meq Tab 20 Meq PO DAILY Lantus Solostar Pen Inj (Insulin Glargine) 300 Unit/3 Ml Pen 30 Units SQ HS Bumetanide 1 Mg Tab 0.5 Mg PO DAILY Ecotrin Regular Strength (Aspirin) 325 Mg Tabdr 325 Mg PO DAILY Review of Systems Except as stated in HPI: all other systems reviewed are Neg HENT: Positive: Headaches, Rhinitis, Congestion Respiratory: Positive: Cough, Pleuritic Pain Musculoskeletal: No: Myalgias Neurologic: No: Dizziness Physical Exam Narrative GENERAL: Well-developed, well-nourished, alert -Armenian male. Presenting in no acute distress. SKIN: Warm and dry. HEAD: Atraumatic. Normocephalic. EYES: Pupils equal and round. No scleral icterus. No injection or drainage. ENT: No nasal bleeding or discharge. Mucous membranes pink and moist. Posterior pharynx with cobblestone appearance. NECK: Trachea midline. No JVD. CARDIOVASCULAR: Regular rate and rhythm. RESPIRATORY: No accessory muscle use. Clear to auscultation. Breath sounds equal bilaterally. No wheezes, rhonchi, rales noted. GASTROINTESTINAL: Abdomen soft, non-tender, nondistended. Hepatic and splenic margins not palpable. MUSCULOSKELETAL: Extremities without clubbing, cyanosis, or edema. No obvious deformities. NEUROLOGICAL: Awake and alert. No obvious cranial nerve deficits. Motor grossly within normal limits. Five out of 5 muscle strength in the arms and legs. Normal speech. PSYCHIATRIC: Appropriate mood and affect; insight and judgment normal. Data Data Last Documented VS Vital Signs Date Time Temp Pulse Resp B/P (MAP) Pulse Ox O2 Delivery O2 Flow Rate FiO2 08/13/17 00:22 95 Room Air 08/12/17 23:11 98.8 89 20 157/90 (112) Orders Orders Guaifen-Cod 200-20 Mg/10ml Liq (Robituss (08/13/17 00:00) Amoxicil-Clavulanate (Augmentin) (08/13/17 00:00) Chest, Pa & Lat (08/13/17 ) MDM Medical Decision Making Medical Screen Exam Complete: Yes Emergency Medical Condition: Yes Medical Record Reviewed: Yes Interpretation(s) Last Impressions Chest X-Ray 08/13/17 0000 Signed Impressions: CONCLUSION: Stable cardiomegaly. Vital Signs Date Time Temp Pulse Resp B/P (MAP) Pulse Ox O2 Delivery O2 Flow Rate FiO2 08/12/17 23:11 98.8 89 20 157/90 (112) 96 Differential Diagnosis Acute sinusitis versus allergic rhinitis versus bronchitis versus viral syndrome versus other Narrative Course Patient is a 61-year-old male presenting to the emergency department for evaluation of 2 weeks of cold and flulike symptoms. Patient is afebrile, he is well oxygenated on room air. Physical exam appears most consistent with an acute sinusitis possibly secondary to allergies. He has trialed azithromycin, Tessalon Perles and Mucinex DM. He went to his primary doctor a few days ago and then was given Flonase and additional cough medication. Patient were encouraged to trial [id number] therapy such as Coricidin HBP. They were also advised allergy medications work best when used consistently for 10-14 days. They were encouraged to be compliant with the Flonase that was previously prescribed. Additionally they are requesting an antibiotic, they were educated on how antibiotics are not effective against viral or allergic etiologies. They were advised that if he begins to take the antibiotic he needs to complete the full course. They were encouraged to follow-up with a primary doctor. Patient was given dose of guaifenesin with codeine in the emergency department to help quiet the cough. Additionally he was given first dose of Augmentin now. Repeat chest x-ray shows no acute disease, stable cardiomegaly. Discussed plan of care with my attending physician. Patient will be discharged home with Augmentin as well as cough medicine. He was advised to follow-up with his primary doctor. He was further advised to continue with the Flonase, Coricidin HBP as directed. He was encouraged return to emergency department for any new or worsening symptoms. Patient stable for discharge. And patient did report improvement in his symptoms after he was given the cough medicine with codeine. Diagnosis Primary Impression: Acute sinusitis with symptoms > 10 days Referrals: Primary Care Physician 3 days Patient Instructions: Acute Cough (GEN), General Instructions, Sinusitis (GEN) Additional Instructions: Follow-up with your primary doctor Take medications as directed Trial [id number] Coricidin HBP as directed Continue with Flonase daily, these medications work best when used consistently Return to emergency department for any new or worsening symptoms Do not drive or operate machinery while taking narcotic pain medication Med/Other Pt SpecificInfo: Prescription(s) given Scripts Guaifenesin-Codeine Liq (Guaifenesin-Codeine Liq) 100-10 Mg/5 Ml Soln 10 ML PO Q6H Y for COUGH, #120 BOTTLE 0 Refills Prov: Vicenta Keen 08/13/17 Amoxicillin-Clavulanate (Augmentin) 875-125 Mg Tab 1 TAB PO BID for Infection, #20 TAB 0 Refills Prov: Vicenta Keen 08/13/17 Disposition: 01 DISCHARGE HOME Condition: Stable Vicenta Keen August 13, 2017 00:21
[2017-08-13 00:22] VITALS: O2SAT 95
--- NOTE | 2017-08-13 00:58 | RADRPT ---
EXAM DATE: 08/13/2017 12:50 AM EDT AGE/SEX: 61 years / Male INDICATIONS: Cough. CLINICAL DATA: This is the patient's initial encounter. Patient reports that signs and symptoms have been present for 1 week and indicates a pain score of 0/10. MEDICAL/SURGICAL HISTORY: None. CABG. COMPARISON: [facility] [place], CHEST PA & LAT, 08/04/2017. . FINDINGS: Cardiomegaly has not changed. Lungs are clear. There is no appreciable change. CONCLUSION: Stable cardiomegaly. Electronically signed by: Jane Mary MD 08/13/2017 12:57 AM EDT
[2017-08-13] MEDS ORDERED: AUGM875T3 PO (01:12)
[2017-08-13] MEDS ORDERED: GUAI100S5 PO (01:12)
== END 2017-08-13 01:15 | disposition home or self-care (01) ==
LOC: NEPD 23:10
DX: J01.90 Acute sinusitis, unspecified (principal); E78.00 Pure hypercholesterolemia, unspecified; I10 Essential (primary) hypertension; E11.9 Type 2 diabetes mellitus without complications; Z86.79 Personal history of other diseases of the circulatory system
CPT/HCPCS: 71046; 99283